=== PATIENT | female | born 1980 | race Native Hawaiian/Other Pacific Islander ===

== ENCOUNTER → 2019-04-03 | Outpatient (CLI) | payer BC ==
--- NOTE | 2019-04-03 13:11 | Diagnostic Imaging Report ---
INDICATION: Size and dates. TECHNIQUE: Multiple real-time grayscale images were obtained over the gravid uterus. COMPARISON: None FINDINGS: There is a single living intrauterine in variable presentation. There is normal volume of amniotic fluid. Placenta is posterior. The biometry correlates with a gestational age of 19 weeks 4 days. Anatomical survey is unremarkable although the three-vessel cord and cord insertion were suboptimally visualized due to movement and position. Heart rate is 150 bpm and regular. Maternal adnexa is unremarkable. Biometrical measurements are as follows: Biparietal 4.3 cm, age 19 weeks 1 days. Head circumference 16.87 cm, age 19 weeks 4 days. Abdominal circumference 14.32 cm, age 19 weeks 5 days. Femur length 3.10 cm, age 19 weeks 5 days. Sonographic estimate age: 19 weeks 4 days. Sonographic estimated date of delivery: 08/24/2019. Estimated Weight: 302 gm (+/- 44 gm). LMP percentile: 32%. heart rate: 150 beats per minute. number: 1 of 1. IMPRESSION: Single living intrauterine with sonographically estimated gestational age 19 weeks 4 days and estimated date of confinement 08/24/2019. Dictated by: Dictated on workstation # [id number]
== END ==
LOC: RAD 11:11
PROVIDERS: ATTEND Obstetrics & Gynecology
DX: O36.1920 Maternal care for other isoimmunization, second trimester, not applicable or unspecified (principal); Z3A.19 19 weeks gestation of pregnancy
CPT/HCPCS: 76805

== ENCOUNTER 2019-04-29 10:36 | Emergency (ER) | payer OTHER, BC ==
[~2019-04-29] VITALS: Ht 170 cm; Wt 94.0 kg
[2019-04-29] MEDS ORDERED: PREN-8 PO (11:22)
--- NOTE | 2019-04-29 11:46 | ED Lower Extremity ---
General Chief Complaint: Lower Extremity Stated Complaint: FALL - R FOOT PAIN / 6 MONTHS PREG Nursing Triage Note: c/o R ankle pain after slipping on rug. patient reports twisting to the ground on the ankle. denies other injury. reports is 6 months gestation Nursing Sepsis Screen: No Definite Risk Source: patient Exam Limitations: no limitations History of Present Illness Date Seen by Provider: Apr 29, 2019 Time Seen by Provider: 11:44 Initial Comments Twisted her foot while at work at [employer] where she is employed, right lateral foot pain. She is 6 months . Onset: just prior to arrival Pain/Injury Location: right foot Method of Injury: twisted Modifying Factors: Worse With Movement Allergies and Home Medications Allergies Coded Allergies: Penicillins (Verified Allergy, Mild, 04/29/19) Patient Home Medication List Home Medication List Reviewed: Yes Review of Systems Constitutional: see HPI EENTM: see HPI Respiratory: no symptoms reported Cardiovascular: no symptoms reported Genitourinary: no symptoms reported Musculoskeletal: see HPI Skin: no symptoms reported Psychiatric/Neurological: No Symptoms Reported Past Osjszox-Tjzgok-Nabnnw Hx Patient Social History Alcohol Use: Denies Use Recreational Drug Use: No Smoking Status: Never a Smoker Recent Foreign Travel: No Contact w/Someone Who Travel: No Recent Infectious Disease Expo: No Physical Abuse: No Sexual Abuse: No Mistreated: No Past Medical History Surgeries: No Respiratory: No Cardiac: No Neurological: No Genitourinary: No Gastrointestinal: No Musculoskeletal: No Endocrine: No HEENT: No Cancer: No Psychosocial: No Integumentary: No Blood Disorders: No Physical Exam Vital Signs Vital Signs - First Documented 04/29/19 11:18 Temp 37.0 Pulse 89 Resp 18 B/P (MAP) 137/79 (98) Pulse Ox 98 Capillary Refill : Less Than 3 Seconds Height, Weight, BMI Height: '" Weight: lbs. oz. kg; 32.00 BMI Method: General Appearance: WD/WN, no apparent distress HEENT: PERRL/EOMI, normal ENT inspection Neck: non-tender, full range of motion Respiratory: no respiratory distress, no accessory muscle use Hips: bilateral hip non-tender, bilateral hip normal inspection, bilateral hip normal range of motion Legs: bilateral leg non-tender, bilateral leg normal inspection, bilateral leg normal range of motion Knees: bilateral knee non-tender, bilateral knee normal inspection, bilateral knee normal range of motion Ankles: bilateral ankle non-tender, bilateral ankle normal inspection, bilateral ankle normal range of motion Feet: right foot other (swelling over the dorsal aspect of the foot at the proximal fourth and fifth metatarsals. Strong dorsalis pedis pulse normal sensation distally.) Neurologic/Psychiatric: alert, normal mood/affect, oriented x 3 Skin: normal color, warm/dry Progress/Results/Core Measures Results/Orders My Orders Orders - RUPERTO BOOTH APRN Ankle, Right, 3 Views (04/29/19 11:23) Foot, Right, 3 View (04/29/19 11:23) Vital Signs/I&O 04/29/19 11:18 Temp 37.0 Pulse 89 Resp 18 B/P (MAP) 137/79 (98) Pulse Ox 98 Blood Pressure Mean: 98 POS Departure Communication (Admissions) She is 6 months , heart rate obtained 166, placed in a posterior short-leg splint given crutches. Offered but Denies pain medication at this time. Impression Primary Impression: Sprain and strain of ankle Additional Impression: Cuboid fracture Disposition: 01 HOME, SELF-CARE Condition: Stable Departure-Patient Inst. Decision time for Depature: 11:44 Referrals: LEDA NGUYEN MD, DAVID G DPHERNÁN BROOKE DO (PCP) Primary Care Physician LISBETH TA MD, CORIN Q DPM ZAFUTA, MICHAEL P MD Patient Instructions: Ankle Sprain (DC) Add. Discharge Instructions: 1. Keep the splint on at all times. When you shower cover this with a trash bag to keep it dry. Keep it elevated as much as possible for the next 2-3 days. Return to ER for any worsening. Call orthopedic surgeon of your choosing on Wednesday for follow-up. No weightbearing in the meantime. All discharge instructions reviewed with patient and/or family. Voiced understanding. RUPERTO BOOTH APRN Apr 29, 2019 11:46 POS
--- NOTE | 2019-04-29 11:46 | Diagnostic Imaging Report ---
Indication: Right foot injury, pain. Comparison: None Findings: 3 views of the right foot demonstrate minimally displaced cuboid fracture lateral aspect. The remainder of the articular surfaces and bony structures are normal. There is no foreign body. Impression: Slightly displaced cuboid fracture. Dictated by: Dictated on workstation # [id number]
--- NOTE | 2019-04-29 11:46 | Diagnostic Imaging Report ---
CLINICAL HISTORY: Right ankle pain after slipping and falling. COMPARISON: None TECHNIQUE: Three views of the right ankle. FINDINGS: Acute fracture of the lateral aspect of the right cuboid is visualized. There is possible intra-articular extension into the right TMT joint. Soft tissue edema is noted along the lateral aspect of the right foot. No evidence of fracture or dislocation is seen in the right ankle. The ankle mortise is well aligned. IMPRESSION: 1. Acute fracture involving the right cuboid with possible intra-articular extension of the right TMT joint. Associated soft tissue edema is present. Dictated by: Dictated on workstation # [id number]
[2019-04-29 12:10] VITALS: BP 137/79
--- OUTSIDE RECORDS SUMMARY | 2019-05-24 21:19 | XMS REPORT | Continuity of Care Document ---
Author Organization Unknown Address Unknown Phone Unavailable Allergies Active Description Code Type Severity Reaction Onset Reported/Identified Relationship to Patient Clinical Status Yes Penicillins [id number] Drug Aller gy Mild N/A 04/29/2019 Medications There is no data. Problems Date Dx Coded Attending Type Code Diagnosis Diagnosed By 04/29/2019 HEIDI SALCIDO DO Ot O36.1920 MATERNAL CARE FOR OTH ISOIMMUN, SECOND T 04/29/2019 HEIDI SALCIDO DO Ot Z3A.1 9 19 WEEKS GESTATION OF 05/04/2019 RUPERTO BOOTH APRN Ot M79.671 PAIN IN RIGHT FOOT 05/04/2019 RUPERTO BOOTH APRN Ot O9A.212 INJ/POISN/OTH CONSEQ OF EXTRN CAUSES COM 05/04/2019 RUPERTO BOOTH APRN Ot S92.211A DISP FX OF CUBOID BONE OF RIGHT FOOT, IN 05/04/2019 RUPERTO BOOTH APRN Ot S93.401A SPRAIN OF UNSPECIFIED LIGAMENT OF RIGHT 05/04/2019 RUPERTO BOOTH APRN Ot X50.1XXA OVEREXERTION FROM PROLONGED STATIC OR AW 05/04/2019 RUPERTO BOOTH APRN Ot Y92.[address] 05/04/2019 RUPERTO BOOTH APRN Ot Z3A.00 WEEKS OF GESTATION OF NOT SPEC 05/04/2019 RUPERTO BOOTH APRN Ot Z88 .0 ALLERGY STATUS TO PENICILLIN 05/05/2019 HEIDI SALCIDO DO Ot O36.1920 MATERNAL CARE FOR OTH ISOIMMUN, SECOND T 05/05/2019 HEIDI SALCIDO DO Ot Z3A.2 3 23 WEEKS GESTATION OF 05/06/2019 RUPERTO BOOTH APRN Ot M79.671 PAIN IN RIGHT FOOT 05/06/2019 RUPERTO BOOTH APRN Ot O9A.212 INJ/POISN/OTH CONSEQ OF EXTRN CAUSES COM 05/06/2019 RUPERTO BOOTH APRN Ot S92.211A DISP FX OF CUBOID BONE OF RIGHT FOOT, IN 05/06/2019 RUPERTO BOOTH APRN Ot S93.401A SPRAIN OF UNSPECIFIED LIGAMENT OF RIGHT 05/06/2019 RUPERTO BOOTH APRN Ot X50.1XXA OVEREXERTION FROM PROLONGED STATIC OR AW 05/06/2019 RUPERTO BOOTH APRN Ot Y92.59 [facility] 05/06/2019 RUPERTO BOOTH APRN Ot Z3A.00 WEEKS OF GESTATION OF NOT SPEC 05/06/2019 RUPERTO BOTOH APRN Ot Z88 .0 ALLERGY STATUS TO PENICILLIN Procedures There is no data. Results There is no data. Encounters ACCT No. Visit Date/Time Discharge Status Pt. Type Provider Facility Loc./Unit Complaint [id number] 05/02/2019 10:32:00 23:59:59 CLS Outpatient HEIDI SALCIDO DO [facility] RAD MATERNAL ATYPICAL ANIBO DY AFFECTING [id number] 05/02/2019 09:11:00 23:59:59 CLS Preadmit HEIDI SALCIDO DO V [facility] RAD SURVEY [id number] 04/29/2019 10:37:00 12:10:00 DIS Outpatient RUPERTO BOOTH APRN [facility] ER FALL - R FOOT PAIN / 6 MONTHS PREG [id number] 04/03/2019 11:11:00 23:59:59 CLS Outpatient HEIDI SALCIDO DO [facility] RAD FETUS PRESENT DURING AL EGNANCY IN SECOND TRIMESTER
== END 2019-04-29 12:10 | disposition home or self-care (01) ==
LOC: EDUNIT# 10:36 → ER 10:37
DX: O9A.212 Injury, poisoning and certain other consequences of external causes complicating pregnancy, second trimester (principal); S93.401A Sprain of unspecified ligament of right ankle, initial encounter; S92.211A Displaced fracture of cuboid bone of right foot, initial encounter for closed fracture; Z3A.00 Weeks of gestation of pregnancy not specified; Z88.0 Allergy status to penicillin; X50.1XXA Overexertion from prolonged static or awkward postures, initial encounter; Y92.59 Other trade areas as the place of occurrence of the external cause
CPT/HCPCS: 73610; 73630

== ENCOUNTER → 2019-05-02 | Outpatient (CLI) | payer BC ==
[~2019-05-02] MED LIST: PREN-8 PO
--- NOTE | 2019-05-02 14:17 | Diagnostic Imaging Report ---
INDICATION: Follow-up anatomy. TECHNIQUE: Multiple real-time grayscale images were obtained over the gravid uterus. COMPARISON: 04/03/2019. FINDINGS: There is a single live fetus in a transverse presentation with head to maternal right. Heart rate was recorded at 155 BPM. Placenta is posterior. Amniotic fluid volume is normal. Four-chamber heart view was visualized on today's study. There is a three-vessel cord. Cord insertion is unremarkable. IMPRESSION: Unremarkable follow-up obstetrical ultrasound. Dictated by: Dictated on workstation # [id number]
== END ==
LOC: RAD 10:32
PROVIDERS: ATTEND Obstetrics & Gynecology
DX: O36.1920 Maternal care for other isoimmunization, second trimester, not applicable or unspecified (principal); Z3A.23 23 weeks gestation of pregnancy
CPT/HCPCS: 76816

== ENCOUNTER → 2019-06-12 | Outpatient (CLI) | payer BC, OTHER ==
--- NOTE | 2019-06-12 15:03 | Diagnostic Imaging Report ---
INDICATION: Follow-up growth. TECHNIQUE: Multiple real-time grayscale images were obtained over the gravid uterus. COMPARISON: 05/02/2019. FINDINGS: There is a single live fetus in a breech presentation. heart rate was recorded at 136 beats per minute. Placenta is posterior. Amniotic fluid volume is normal. Biometrical measurements are as follows: Biparietal 7.08 cm, age 28 weeks 4 days. Head circumference 27.94 cm, age 30 weeks 5 days. Abdominal circumference 24.78 cm, age 29 weeks 1 days. Femur length 5.25 cm, age 28 weeks 0 days. Sonographic estimate age: 29 weeks 1 days. Sonographic estimated date of delivery: 08/27/2019. Estimated Weight: 1281 gm (+/- 187 gm). LMP percentile: 10%. heart rate: 136 beats per minute. number: 1 of 1. IMPRESSION: Single live IUP of approximately 29 weeks gestational age demonstrating normal interval growth when compared with prior exam. No complicating features are detected. Dictated by: Dictated on workstation # [id number]
== END ==
LOC: RAD 11:15
PROVIDERS: ATTEND Obstetrics & Gynecology
DX: O36.1920 Maternal care for other isoimmunization, second trimester, not applicable or unspecified (principal); Z3A.19 19 weeks gestation of pregnancy
CPT/HCPCS: 76816

== ENCOUNTER → 2019-07-14 | Outpatient (CLI) | payer BC ==
--- NOTE | 2019-07-14 09:43 | Diagnostic Imaging Report ---
EXAMINATION: biophysical profile. INDICATION: Check well-being. COMPARISON: There are no prior biophysical profile examinations available for comparison. FINDINGS: The OB ultrasound exam of 06/12/2019 did note a single live fetus approximately 29 weeks gestation. On this study, the fetus is again evident. The fetus is cephalic in presentation. heart motion was noted and a rate of 133 BPM was recorded. The biophysical profile score is 8 out of 8 and within normal limits. Amniotic fluid index is 10.3. (normal 8 to 22 cm). IMPRESSION: 1. There is a single live fetus in cephalic presentation. 2. The biophysical profile score is 8 out of 8 and within normal limits. Dictated by: Dictated on workstation # [id number]
== END ==
LOC: RAD 07:28
PROVIDERS: ATTEND Obstetrics & Gynecology
DX: O09.523 Supervision of elderly multigravida, third trimester (principal); R76.0 Raised antibody titer; Z3A.31 31 weeks gestation of pregnancy
CPT/HCPCS: 76819

== ENCOUNTER 2019-08-11 17:40 | Inpatient (IN) | payer BC ==
[~2019-08-11] VITALS: Ht 170.2 cm; Wt 103.5 kg
--- NOTE | 2019-08-11 17:45 | NUR ---
MEGAN VENCES presented to unit via ambulation from ED, accompanied by s/o, with c/o LOWER BACK PAIN. MEGAN VENCES S weighed, gowned, voided, and to bed. EFHM and TOCO applied, VS taken. MEGAN VENCES oriented to bed controls, call light, TV, heat, and A/C controls.
[2019-08-11 18:03] VITALS: BP 142/83
[2019-08-11 18:25] LABS: BILIRUBIN,URINE NEGATIVE (NEGATIVE); CLARITY,URINE CLEAR; COLOR,URINE YELLOW; GLUCOSE, URINE (UA) NEGATIVE (NEGATIVE); KETONES,URINE NEGATIVE (NEGATIVE); LEUKOCYTE ESTERASE ,URINE NEGATIVE (NEGATIVE); NITRITE,URINE NEGATIVE (NEGATIVE); PROTEIN,URINE NEGATIVE (NEGATIVE)
--- NOTE | 2019-08-11 18:25 | NUR ---
dr martin notified of patient c/o and assessment. continuing to observe patient.
[2019-08-11 18:32] LABS: BACTERIA,URINE TRACE /HPF
--- NOTE | 2019-08-11 18:50 | NUR ---
dr martin called SBAR report given. orders received.
[2019-08-11] MEDS ORDERED: MINERAL OIL CONCENTRATE 99.9% 15 ML UDC TOP PRN (19:00)
[2019-08-11 20:04] VITALS: BP 125/78
[2019-08-11 20:36] LABS: BASOPHILS % (AUTO) 0 % (0-10); EOSINOPHILS # (AUTO) 0.1 10^3/uL (0.0-0.3); EOSINOPHILS % (AUTO) 1 % (0-10); HEMATOCRIT 35 % (35-52); HEMOGLOBIN 11.8 G/DL (11.5-16.0); LYMPHOCYTES # (AUTO) 2.7 X 10^3 (1.0-4.0); LYMPHOCYTES % (AUTO) 28 % (12-44); MEAN CORPUSCULAR HEMOGLOBIN 31 PG (25-34); MEAN CORPUSCULAR HGB CONC 34 G/DL (32-36); MEAN CORPUSCULAR VOLUME 90 FL (80-99); MEAN PLATELET VOLUME 10.1 FL (7.4-10.4); MONOCYTES # (AUTO) 0.7 X 10^3 (0.0-1.0); MONOCYTES % (AUTO) 8 % (0-12); NEUTROPHILS # (AUTO) 5.9 X 10^3 (1.8-7.8); NEUTROPHILS % (AUTO) 63 % (42-75); PLATELET COUNT 216 10^3/uL (130-400); RED CELL DISTRIBUTION WIDTH 13.6 % (10.0-14.5); WHITE BLOOD COUNT 9.4 10^3/uL (4.3-11.0)
[2019-08-11] MEDS ORDERED: ceFAZolin INJECTION 1,000 MG ONE (20:59)
[2019-08-11] MEDS ORDERED: MISOPROSTOL 100 MCG (CYTOTEC) TAB PO ONE ×2 (21:00→21:30)
[2019-08-11] MEDS ORDERED: WATER (STERILE) FOR INJECTION 10 ML ONE (21:05)
[2019-08-11] MEDS: ceFAZolin INJECTION 1,000 MG in WATER (STERILE) FOR INJECTION 10 ML IV SCH (21:12)
--- NOTE | 2019-08-11 21:15 | NUR ---
Dr. Holm at pt bedside with sono. Vertex presentation confirmed at this time.
[2019-08-11 21:18] VITALS: BP 121/69
[2019-08-11] MEDS ORDERED: LACTATED RINGERS 1,000 ML IV SCH (21:27)
[2019-08-11] MEDS ORDERED: TERBUTALINE INJ 1 MG/ML (BRETHINE) AMP SC PRN (21:30)
[2019-08-11 21:58] VITALS: BP 125/78
[2019-08-11] MEDS ORDERED: CATHETER FLUSH 10 ML SYR IV SCH (22:00)
[2019-08-11 22:20] VITALS: BP 124/67
[2019-08-11 23:05] VITALS: BP 131/72
[2019-08-12] VITALS (53 sets, daily range): BP systolic 82–146; BP diastolic 54–91
[2019-08-12] MEDS: D5 LR IV SOLUTION 1,000 ML IV SCH ×2 (00:51→08:46)
--- NOTE | 2019-08-12 01:41 | NUR ---
Nurse at pt bedside to adjust monitors. Pt. is sleeping soundly at this time.
[2019-08-12] MEDS: MISOPROSTOL 100 MCG (CYTOTEC) TAB PO SCH ×2 (02:11→06:08)
[2019-08-12] MEDS ORDERED: WATER (STERILE) FOR INJECTION 10 ML ONE (03:01)
[2019-08-12] MEDS ORDERED: ceFAZolin INJECTION 1,000 MG ONE (03:02)
[2019-08-12] MEDS: ceFAZolin INJECTION 1,000 MG in WATER (STERILE) FOR INJECTION 10 ML IV SCH (03:08)
--- NOTE | 2019-08-12 07:19 | NUR ---
Report given to Stephon Gomez RN.
[2019-08-12] MEDS ORDERED: ceFAZolin INJECTION 1,000 MG in WATER (STERILE) FOR INJECTION 10 ML IV SCH (09:00)
--- NOTE | 2019-08-12 09:32 | History & Physical-OB ---
OB - Chief Complaint & HPI Date/Time Date of Admission: Date of Admission: Aug 11, 2019 at 18:55 Date seen by a Provider: Aug 12, 2019 Time Seen by a Provider: 19:00 Chief Complaint/History OB-Reason for Admission/Chief: Onset of Labor Hx : 3 Hx Para: 2 Expected Date of Delivery: Aug 22, 2019 Gestational Age in Weeks: 37 Gestational Age in Days: 6 Other reason for admission: Presented to clinic with low back pain and contractions. Was 1 cm dilated but david regularly. Originally complained of decreased movement. Did see increase in movement at end of NST. Sent home with labor instructions. Arrived this evening with increase in contractions and lower pelvic pressure. Decreased movement. David less frequently, but cervical exam has changed. Admitted for labor and decreased movement. GBS + with true penicillin allergy. Ancef started. Will monitor. Admission Nurse Assessment Rev: Yes History of Labs elevated titers for anti-c anti-E but these have never been > 1:1. Had eval with MFM due to AMA and antibodies. Had negative NIPT testing and normal Nuchal translucency. Was to return if titers were ever > 1:16 and they never did. Has had normal US and normal testing. B+, antibody + (testing here was neg) Rub I VDRL NR HIV - HbSAg - Hep C - GBS + Allergies and Home Medications Allergies Coded Allergies: Penicillins (Verified Allergy, Mild, 04/29/19) Patient Home Medication List Home Medication List Reviewed: Yes OB - History Hx of Present Care: Yes Ultrasounds: Normal mid trimester US, Other (normal BPP, growth, NST) Obstetrical Complications: None Medical Complications: Other (abnormal antibody, AMA) Information Induced Hypertension: No Maternal Gestational Diabetes: No Hemorrhage: No Obstetrical History Hx : 3 Hx Para: 2 Hx Total # of Abortions (Spona: 0 Hx Multiple Gestation: No Hx Ectopic : No Hx Stillbirth: No Hx Complication: No Hx Induced Hypertens: No Hx Maternal Gestational Diabet: No Hx Hemorrhage: No Delivery History Hx Dystocia: No Hx Forceps Assisted Delivery: No Hx Vacuum Extraction Assisted: No Hx Placenta Abnormality: No Patient Past Medical History history of CKC of cervix NC cervical dysplasia Social History/Family History HIV/AIDS: No Recent Infectious Disease Expo: No Sexually Transmitted Disease: No Alcohol Use: Denies Use Recreational Drug Use: No Smoking Cessation: Current some day smoker 2nd Hand Smoke Exposure: No Immunizations Hepatitis A: No Tetanus Booster (TDap): Less than 5yrs (06/01/19) Date of Influenza Vaccine: Apr 12, 2019 Rubella: immune RPR/VDRL: Negative GBS Status: Positive HBsAG: Negative OB - Admission Exam Physical Exam Vitals: Vital Signs 08/11/19 08/12/19 21:58 06:15 Temp 37.2 Pulse 77 Resp 18 B/P (MAP) 144/69 (94) Pulse Ox 97 O2 Delivery Room Air HEENT: NCAT Heart: Rhythm Normal Lungs: Clear Abdomen: Gravid Extremities: Normal Reflexes: Normal Cervical Dilatation: 3cm Effacement: 50% Station: -3 Membranes: Intact Amniotic Fluid: Clear Heart Rate: 130's Accelerations: Accelerations Present Decelerations: No Decelerations Short Term Variability: Present Contractions on Admission: < 5 Minutes Apart Labs Laboratory Tests Test 08/11/19 17:50 08/11/19 20:20 Range/Units Urine Color YELLOW Urine Clarity CLEAR Urine pH 6.0 5-9 Urine Specific [place] <=1.005 1.016-1.022 Urine Protein NEGATIVE NEGATIVE Urine Glucose (UA) NEGATIVE NEGATIVE Urine Ketones NEGATIVE NEGATIVE Urine Nitrite NEGATIVE NEGATIVE Urine Bilirubin NEGATIVE NEGATIVE Urine Urobilinogen 0.2 < = 1.0 MG/DL Urine Leukocyte Esterase NEGATIVE NEGATIVE Urine RBC (Auto) NEGATIVE NEGATIVE Urine RBC NONE /HPF Urine WBC NONE /HPF Urine Crystals NONE /LPF Urine Bacteria TRACE /HPF Urine Casts NONE /LPF Urine Mucus NEGATIVE /LPF Urine Culture Indicated CULTURE PENDING White Blood Count 9.4 4.3-11.0 10^3/uL Red Blood Count 3.85 L 4.35-5.85 10^6/uL Hemoglobin 11.8 11.5-16.0 G/DL Hematocrit 35 35-52 % Mean Corpuscular Volume 90 80-99 FL Mean Corpuscular Hemoglobin 31 25-34 PG Mean Corpuscular Hemoglobin Concent 34 32-36 G/DL Red Cell Distribution Width 13.6 10.0-14.5 % Platelet Count 216 130-400 10^3/uL Mean Platelet Volume 10.1 7.4-10.4 FL Neutrophils (%) (Auto) 63 42-75 % Lymphocytes (%) (Auto) 28 12-44 % Monocytes (%) (Auto) 8 0-12 % Eosinophils (%) (Auto) 1 0-10 % Basophils (%) (Auto) 0 0-10 % Neutrophils # (Auto) 5.9 1.8-7.8 X 10^3 Lymphocytes # (Auto) 2.7 1.0-4.0 X 10^3 Monocytes # (Auto) 0.7 0.0-1.0 X 10^3 Eosinophils # (Auto) 0.1 0.0-0.3 10^3/uL Basophils # (Auto) 0.0 0.0-0.1 10^3/uL OB - Assessment/Plan/Diagnosis Assessment Assessment: active labor, other (Advanced maternal age, abnormal antibodies, decreased movementm, GBS +) Admission Dx Labor, see above Admission Status: Inpatient Order (span 2 midnights) Reason for Inpatient Admission: labor Plan Plan: Expectant Management, Other (GBS prophylaxis with Ancef due to pcn allergy. will give misoprostol due to thickened cervix, rather than pitocin. AROM once has had sufficient dosing of the ancef. Anticipate . Peds - ) HEIDI SALCIDO DO Aug 12, 2019 09:32
[2019-08-12] MEDS ORDERED: OXYTOCIN PRE-MIX DRIP 500 ML IV ONE (10:03)
[2019-08-12] MEDS ORDERED: OXYTOCIN PRE-MIX DRIP 500 ML IV SCH (10:06)
--- NOTE | 2019-08-12 10:33 | NUR ---
Divina Schumacher CRNA called and notified of epidural request
[2019-08-12] MEDS ORDERED: SUFENTA 0.6MCG/ML BUPIVA 0.125 100 ML ONE (10:34)
[2019-08-12] MEDS ORDERED: fentaNYL INJECTION 100 MCG/2 ML AMP ONE (10:49)
[2019-08-12] MEDS ORDERED: BUPIVACAINE 0.25% 30 ML (SENSORCAINE) VIAL ONE (10:49)
[2019-08-12] MEDS ORDERED: LIDOCAINE PF 2% 5 ML (XYLOCAINE) VIAL ONE (10:49)
--- NOTE | 2019-08-12 10:55 | NUR ---
Divina Schumacher CRNA and MARIE Richard here for epidural placement. Procedure explained, consent reviewed and signed by anesthesia. Questions answered to patient's satisfaction. Time out taken to verify correct patient/procedure. Patient up to side of bed, assisted into sitting position. Betadine prep done x3 and sterile drape applied. Local done, see anesthesia record. Test dose given, see anesthesia record for drug and dosage. Epidural catheter secured in place. Epidural placement complete. Assisted back into bed, monitors adjusted. Epidural dosed, see anesthesia record. Epidural of Sufenta/Bupvicaine @12cc/hr stated per pump. Patient tolerated procedure well.
[2019-08-12] MEDS ORDERED: LACTATED RINGERS 1,000 ML IV SCH (11:31)
[2019-08-12] MEDS ORDERED: NALOXONE 0.4 MG/ML 1 ML (NARCAN) VIAL IV PRN (11:45)
[2019-08-12] MEDS ORDERED: diphenhydrAMINE 50 MG/ML INJ (BENADRYL) IV PRN (11:45)
[2019-08-12] MEDS ORDERED: EPIDURAL (SUFENTA 0.6MCG/ML BUPIVA 0.125%) 100 ML BAG EPI PRN (11:45)
[2019-08-12] MEDS ORDERED: ONDANSETRON 4 MG/2 ML (SDV) Z0FRAN IV PRN (11:45)
[2019-08-12] MEDS ORDERED: LIDOCAINE/EPI 2% 1:200,00 (XYLOCAINE) 10 ML VIAL ONE (16:08)
--- NOTE | 2019-08-12 17:12 | OB Labor & Delivery Record ---
Vag Delivery Note Vag Delivery Note Date of Delivery: 08/12/19 Preoperative Diagnosis: Belinda Wright is a 38 /Para 3 / 2, Gestational Age 38 4/7 weeks, labor, GBS + Postoperative Diagnosis: Same Surgeon: HEIDI SALCIDO Plant Protection Officer: Kyle Cortez, MS III Anesthesia: epidural Delivery Type: vaginal Findings: Viable male infant, apgars 9/9, weight 7#8 ounces Lacerations: 1st degree laceration, supraclitoral Intact placenta with 3 vessel cord. No nuchal cord, body cord or shoulder dystocia Estimated Blood Loss: 1000 ml Complications: None Condition: Stable Description of Procedure: The patient is a 38 year old female who presented in latent labor, GBS +. She was admitted and informed consent was obtained. Her labor course was remarkable for GBS prophylaxis. misoprostol, AROM, oxytocin augmentation. She progressed to complete dilatation and began to push. She was then set up for delivery. The 's head was delivered atraumatically in the IAN position. The shoulders and remainder of the 's body were then delivered without difficulty. Upon delivery, the head was held below the level of the perineum and the mouth and nares were bulb suctioned. The cord was doubly clamped and cut and the infant was handed off to the pediatric staff. An intact placenta with 3-vessel cord delivered via Sharmila and there was found to be minimal bleeding.~ Vigorous fundal massage was performed and the fundus was found to be firm. IV oxytocin was given. Examination of the vagina and perineum revealed a supraclitoral and 1st degree laceration repaired in the usual fashion with 3-0 vicryl suture. Following the repair, sponge, instrument and needle counts were correct. Mom and baby were both in stable condition in the labor suite. Vitals - Labs Vital Signs - I&O Vital Signs Date Time Temp Pulse Resp B/P (MAP) Pulse Ox O2 Delivery O2 Flow Rate FiO2 08/12/19 15:45 36.6 82 18 129/79 (96) Room Air 08/12/19 15:30 96 18 123/67 (85) Room Air 08/12/19 15:15 78 18 104/59 (74) Room Air 08/12/19 15:00 82 18 119/69 (86) Room Air 08/12/19 14:45 82 18 119/60 (79) Room Air 08/12/19 14:30 74 18 123/63 (83) Room Air 08/12/19 14:15 36.7 86 18 115/65 (82) Room Air 08/12/19 14:00 74 18 103/59 (74) Room Air 08/12/19 13:45 76 18 120/56 (77) Room Air 08/12/19 13:30 78 18 129/78 (95) Room Air 08/12/19 13:15 86 18 145/91 (109) Room Air 08/12/19 13:00 18 128/80 (96) Room Air 08/12/19 12:45 36.7 75 18 132/70 (90) 98 Room Air 08/12/19 12:30 80 18 126/70 (88) 99 Room Air 08/12/19 12:15 75 18 119/69 (86) 98 Room Air 08/12/19 12:10 90 18 116/70 (85) 96 Room Air 08/12/19 12:05 86 18 120/63 (82) 98 Room Air 08/12/19 12:00 106 18 123/66 (85) 97 Room Air 08/12/19 11:54 84 18 116/64 (81) 97 Room Air 08/12/19 11:51 96 18 119/68 (85) 99 Room Air 08/12/19 11:48 98 18 127/71 (89) 99 Room Air 08/12/19 11:45 99 18 124/66 (85) 97 Room Air 08/12/19 11:41 108 18 125/65 (85) Room Air 08/12/19 11:38 95 18 128/75 (92) 99 Room Air 08/12/19 11:35 92 18 117/64 (81) Room Air 08/12/19 11:32 100 18 112/60 (77) 98 Room Air 08/12/19 11:29 98 18 120/69 (86) 98 Room Air 08/12/19 11:26 94 18 116/68 (84) 98 Room Air 08/12/19 11:23 84 18 124/68 (86) 98 Room Air 08/12/19 11:20 90 18 132/75 (94) 98 Room Air 08/12/19 11:10 94 18 131/60 (83) 96 Room Air 08/12/19 10:55 36.8 88 18 146/74 (98) Room Air 08/12/19 10:40 90 18 141/74 (96) Room Air 08/12/19 09:50 36.9 86 18 131/77 (95) Room Air 08/12/19 07:45 36.7 90 18 123/75 (91) Room Air 08/12/19 06:15 37.2 77 18 144/69 (94) Room Air 08/12/19 04:43 37.0 86 18 122/73 (89) Room Air 08/12/19 00:57 37.0 85 18 122/60 (80) Room Air 08/11/19 23:05 85 18 131/72 (91) Room Air 08/11/19 22:20 86 18 124/67 (86) Room Air 08/11/19 21:58 37.4 95 18 97 Room Air 08/11/19 21:18 88 18 121/69 (86) Room Air 08/11/19 20:04 37.4 95 18 125/78 (94) 97 Room Air 08/11/19 18:03 37.0 110 20 98 Room Air Labs Laboratory Tests 08/11/19 17:50: Urine Color YELLOW, Urine Clarity CLEAR, Urine pH 6.0, Urine Specific [place] <=1.005, Urine Protein NEGATIVE, Urine Glucose (UA) NEGATIVE, Urine Ketones NEGATIVE, Urine Nitrite NEGATIVE, Urine Bilirubin NEGATIVE, Urine Urobilinogen 0.2, Urine Leukocyte Esterase NEGATIVE, Urine RBC (Auto) NEGATIVE, Urine RBC NONE, Urine WBC NONE, Urine Crystals NONE, Urine Bacteria TRACE, Urine Casts NONE, Urine Mucus NEGATIVE, Urine Culture Indicated CULTURE PENDING 08/11/19 20:20: White Blood Count 9.4, Red Blood Count 3.85L, Hemoglobin 11.8, Hematocrit 35, Mean Corpuscular Volume 90, Mean Corpuscular Hemoglobin 31, Mean Corpuscular Hemoglobin Concent 34, Red Cell Distribution Width 13.6, Platelet Count 216, Mean Platelet Volume 10.1, Neutrophils (%) (Auto) 63, Lymphocytes (%) (Auto) 28, Monocytes (%) (Auto) 8, Eosinophils (%) (Auto) 1, Basophils (%) (Auto) 0, Neutrophils # (Auto) 5.9, Lymphocytes # (Auto) 2.7, Monocytes # (Auto) 0.7, Eosinophils # (Auto) 0.1, Basophils # (Auto) 0.0 HEIDI SALCIDO DO Aug 12, 2019 17:11
[2019-08-12] MEDS ORDERED: MEASLES,MUMPS,RUBELLA 1 EA INJ SQ ONE (17:15)
[2019-08-12] MEDS ORDERED: DIBUCAINE (NUPERCAINAL) 1% OINT 30 GM TOP PRN (17:15)
[2019-08-12] MEDS ORDERED: BENZOCAINE/MENTHOL (DERMOPLAST) 60 ML CAN TP PRN (17:15)
[2019-08-12] MEDS ORDERED: WITCH HAZEL(TUCKS) 40 EA JAR TOP PRN (17:15)
[2019-08-12] MEDS ORDERED: TETANUS,DIPTH,PERTUSS P/F (BOOSTRIX) 0.5 ML VIAL IM ONE (17:15)
[2019-08-12] MEDS: OXYTOCIN PRE-MIX DRIP 500 ML IV SCH ×2 (17:20→18:06)
[2019-08-12] MEDS: IBUPROFEN 600 MG (MOTRIN) TAB PO SCH (19:28)
[2019-08-12] MEDS: DOCUSATE SODIUM 100 MG (COLACE) CAP PO SCH (21:58)
[2019-08-12] MEDS: ACETAMINOPHEN 500 MG TAB (TYLENOL) PO SCH (21:58)
[2019-08-12] MEDS ORDERED: CATHETER FLUSH 10 ML SYR IV SCH (22:00)
[2019-08-13] MEDS: IBUPROFEN 600 MG (MOTRIN) TAB PO SCH ×3 (02:12→16:56)
[2019-08-13 04:33] VITALS: BP 115/73
[2019-08-13 05:36] LABS: BASOPHILS % (AUTO) 0 % (0-10); EOSINOPHILS # (AUTO) 0.2 10^3/uL (0.0-0.3); EOSINOPHILS % (AUTO) 2 % (0-10); HEMATOCRIT 28 % (35-52); HEMOGLOBIN 9.4 G/DL (11.5-16.0); LYMPHOCYTES # (AUTO) 2.2 X 10^3 (1.0-4.0); LYMPHOCYTES % (AUTO) 25 % (12-44); MEAN CORPUSCULAR HEMOGLOBIN 31 PG (25-34); MEAN CORPUSCULAR HGB CONC 34 G/DL (32-36); MEAN CORPUSCULAR VOLUME 92 FL (80-99); MEAN PLATELET VOLUME 9.1 FL (7.4-10.4); MONOCYTES # (AUTO) 0.7 X 10^3 (0.0-1.0); MONOCYTES % (AUTO) 8 % (0-12); NEUTROPHILS # (AUTO) 5.7 X 10^3 (1.8-7.8); NEUTROPHILS % (AUTO) 65 % (42-75); PLATELET COUNT 171 10^3/uL (130-400); RED CELL DISTRIBUTION WIDTH 13.8 % (10.0-14.5); WHITE BLOOD COUNT 8.7 10^3/uL (4.3-11.0)
--- NOTE | 2019-08-13 08:20 | NUR ---
To room for director medical affairs and assessment. Pt awakens briefly upon RN entering room, but is sleeping with in open crib next to bed. Will let pt rest and will return for assessment. No s/s of distress noted.
--- NOTE | 2019-08-13 09:05 | Postpartum Progress Note ---
Note Note Day # 1 s/p , PPH Subjective: Patient is without complaints. Ambulating, voiding. Tolerating a regular diet without nausea or vomiting. Normal lochia. Pain is well controlled with oral pain medications. breast feeding. Objective: Laboratory Tests Test 08/11/19 17:50 08/11/19 20:20 08/13/19 05:11 Range/Units Urine Color YELLOW Urine Clarity CLEAR Urine pH 6.0 5-9 Urine Specific [place] <=1.005 1.016-1.022 Urine Protein NEGATIVE NEGATIVE Urine Glucose (UA) NEGATIVE NEGATIVE Urine Ketones NEGATIVE NEGATIVE Urine Nitrite NEGATIVE NEGATIVE Urine Bilirubin NEGATIVE NEGATIVE Urine Urobilinogen 0.2 < = 1.0 MG/DL Urine Leukocyte Esterase NEGATIVE NEGATIVE Urine RBC (Auto) NEGATIVE NEGATIVE Urine RBC NONE /HPF Urine WBC NONE /HPF Urine Crystals NONE /LPF Urine Bacteria TRACE /HPF Urine Casts NONE /LPF Urine Mucus NEGATIVE /LPF Urine Culture Indicated CULTURE PENDING White Blood Count 9.4 8.7 4.3-11.0 10^3/uL Red Blood Count 3.85 L 3.01 L 4.35-5.85 10^6/uL Hemoglobin 11.8 9.4 #L 11.5-16.0 G/DL Hematocrit 35 28 L 35-52 % Mean Corpuscular Volume 90 92 80-99 FL Mean Corpuscular Hemoglobin 31 31 25-34 PG Mean Corpuscular Hemoglobin Concent 34 34 32-36 G/DL Red Cell Distribution Width 13.6 13.8 10.0-14.5 % Platelet Count 216 171 130-400 10^3/uL Mean Platelet Volume 10.1 9.1 7.4-10.4 FL Neutrophils (%) (Auto) 63 65 42-75 % Lymphocytes (%) (Auto) 28 25 12-44 % Monocytes (%) (Auto) 8 8 0-12 % Eosinophils (%) (Auto) 1 2 0-10 % Basophils (%) (Auto) 0 0 0-10 % Neutrophils # (Auto) 5.9 5.7 1.8-7.8 X 10^3 Lymphocytes # (Auto) 2.7 2.2 1.0-4.0 X 10^3 Monocytes # (Auto) 0.7 0.7 0.0-1.0 X 10^3 Eosinophils # (Auto) 0.1 0.2 0.0-0.3 10^3/uL Basophils # (Auto) 0.0 0.0 0.0-0.1 10^3/uL Physical Exam: General - Alert and oriented, no apparent distress Abdomen - Soft, appropriately tender to palpation, non-distended, fundus firm at umbilicus Extremities - no edema, negative Jf's bilaterally Assessment: 1. post- day # 1, status post sponteous vaginal delivery. Recovering well, hemodynamically stable Plan: Routine care. Encourage breast feeding. Encourage ambulation. Ferrous sulfate supplementation. Plan for discharge tomorrow Vitals - Labs Vital Signs - I&O Vital Signs Date Time Temp Pulse Resp B/P (MAP) Pulse Ox O2 Delivery O2 Flow Rate FiO2 08/13/19 04:33 36.6 87 18 115/73 (87) 99 Room Air 08/12/19 23:50 36.5 87 18 82/54 (63) 97 Room Air 08/12/19 19:30 99 18 121/61 (81) Room Air 08/12/19 19:21 36.7 113 18 119/62 (81) Room Air 08/12/19 19:15 111 18 116/59 (78) Room Air 08/12/19 19:02 100 18 122/60 (80) Room Air 08/12/19 18:30 103 18 138/88 (105) Room Air 08/12/19 18:15 103 18 138/75 (96) Room Air 08/12/19 18:02 105 145/76 (99) Room Air 08/12/19 17:45 100 121/77 (92) Room Air 08/12/19 17:35 36.9 101 18 125/82 (96) Room Air 08/12/19 17:00 84 18 125/56 (79) Room Air 08/12/19 16:45 84 18 117/60 (79) Room Air 08/12/19 16:30 90 18 121/75 (90) Room Air 08/12/19 16:15 94 18 122/79 (93) Room Air 08/12/19 16:00 79 18 136/70 (92) Room Air 08/12/19 15:45 36.6 82 18 129/79 (96) Room Air 08/12/19 15:30 96 18 123/67 (85) Room Air 08/12/19 15:15 78 18 104/59 (74) Room Air 08/12/19 15:00 82 18 119/69 (86) Room Air 08/12/19 14:45 82 18 119/60 (79) Room Air 08/12/19 14:30 74 18 123/63 (83) Room Air 08/12/19 14:15 36.7 86 18 115/65 (82) Room Air 08/12/19 14:00 74 18 103/59 (74) Room Air 08/12/19 13:45 76 18 120/56 (77) Room Air 08/12/19 13:30 78 18 129/78 (95) Room Air 08/12/19 13:15 86 18 145/91 (109) Room Air 08/12/19 13:00 18 128/80 (96) Room Air 08/12/19 12:45 36.7 75 18 132/70 (90) 98 Room Air 08/12/19 12:30 80 18 126/70 (88) 99 Room Air 08/12/19 12:15 75 18 119/69 (86) 98 Room Air 08/12/19 12:10 90 18 116/70 (85) 96 Room Air 08/12/19 12:05 86 18 120/63 (82) 98 Room Air 08/12/19 12:00 106 18 123/66 (85) 97 Room Air 08/12/19 11:54 84 18 116/64 (81) 97 Room Air 08/12/19 11:51 96 18 119/68 (85) 99 Room Air 08/12/19 11:48 98 18 127/71 (89) 99 Room Air 08/12/19 11:45 99 18 124/66 (85) 97 Room Air 08/12/19 11:41 108 18 125/65 (85) Room Air 08/12/19 11:38 95 18 128/75 (92) 99 Room Air 08/12/19 11:35 92 18 117/64 (81) Room Air 08/12/19 11:32 100 18 112/60 (77) 98 Room Air 08/12/19 11:29 98 18 120/69 (86) 98 Room Air 08/12/19 11:26 94 18 116/68 (84) 98 Room Air 08/12/19 11:23 84 18 124/68 (86) 98 Room Air 08/12/19 11:20 90 18 132/75 (94) 98 Room Air 08/12/19 11:10 94 18 131/60 (83) 96 Room Air 08/12/19 10:55 36.8 88 18 146/74 (98) Room Air 08/12/19 10:40 90 18 141/74 (96) Room Air 08/12/19 09:50 36.9 86 18 131/77 (95) Room Air I & O 08/13/19 07:00 Intake Total 2009 ml Balance 2009 ml Labs Laboratory Tests 08/13/19 05:11: White Blood Count 8.7, Red Blood Count 3.01L, Hemoglobin 9.4#L, Hematocrit 28L, Mean Corpuscular Volume 92, Mean Corpuscular Hemoglobin 31, Mean Corpuscular Hemoglobin Concent 34, Red Cell Distribution Width 13.8, Platelet Count 171, Mean Platelet Volume 9.1, Neutrophils (%) (Auto) 65, Lymphocytes (%) (Auto) 25, Monocytes (%) (Auto) 8, Eosinophils (%) (Auto) 2, Basophils (%) (Auto) 0, Ne utrophils # (Auto) 5.7, Lymphocytes # (Auto) 2.2, Monocytes # (Auto) 0.7, Eosinophils # (Auto) 0.2, Basophils # (Auto) 0.0 HEIDI SALCIDO DO Aug 13, 2019 09:05
--- NOTE | 2019-08-13 09:20 | NUR ---
RN to room to answer call light. Pt showering at this time. Towels and shower supplies provided.
[2019-08-13] MEDS: FERROUS SULF 325 MG (IRON) TAB PO SCH (10:45)
[2019-08-13] MEDS: PRENATAL VITAMIN 1 EA TAB PO SCH (10:46)
[2019-08-13] MEDS: DOCUSATE SODIUM 100 MG (COLACE) CAP PO SCH ×2 (10:46→21:06)
[2019-08-13 10:48] VITALS: BP 121/74
[2019-08-13] MEDS: ACETAMINOPHEN 500 MG TAB (TYLENOL) PO SCH ×2 (13:05→21:06)
--- NOTE | 2019-08-13 13:30 | Anesthesia-Regional Post-Op ---
Regional Patient Condition Mental Status: Alert, Oriented x3 Circulation: Same as Pre-Op Headache: Absent Sensation: Full Recovery Motor Block: Absent Post Op Complications Complications None Follow Up Care/Instructions Patient Instructions None needed. Anesthesia/Patient Condition Patient is doing well, no complaints, stable vital signs, no apparent adverse anesthesia problems. No complications reported per nursing. ELHAM BEE CRNA Aug 13, 2019 13:30
--- OUTSIDE RECORDS SUMMARY | 2019-08-13 15:43 | XMS REPORT | Continuity of Care Document ---
Author Organization Unknown Address Unknown Phone Unavailable Allergies Active Description Code Type Severity Reaction Onset Reported/Identified Relationship to Patient Clinical Status Yes Penicillins [id number] Drug Aller gy Mild N/A 04/29/2019 Medications [...] BONE OF RIGHT FOOT, IN 05/06/2019 RUPERTO BOOHT APRN Ot S93.401A SPRAIN OF UNSPECIFIED LIGAMENT OF RIGHT 05/06/2019 RUPERTO BOOTH APRN Ot X50.1XXA OVEREXERTION FROM PROLONGED STATIC OR AW 05/06/2019 RUPERTO BOOTH APRN Ot Y92.59 [facility] 05/06/2019 RUPERTO BOOTH APRN Ot Z3A.00 WEEKS OF GESTATION OF NOT SPEC 05/06/2019 RUPERTO BOOTH APRN Ot Z88 .0 ALLERGY STATUS TO PENICILLIN 06/30/2019 SALCIDO DO HEIDI C Ot O36.1920 MATERNAL CARE FOR [facility] ISOIMMUN, SECOND T 06/30/2019 LOLY DO HEIDI C Ot Z3A.1 9 19 WEEKS GESTATION OF 07/27/2019 SALCIDO DO HEIDI C Ot O09.5 23 [facility]PERVISION OF [facility], [facility] 07/27/2019 SALCIDO DO HEIDI C Ot R76.0 RAISED ANTIBODY TITER 07/27/2019 SALCIDO DO HEIDI C Ot Z3A.3 1 31 WEEKS GESTATION OF 08/10/2019 SALCIDO DO HEIDI C Ot O09.5 23 [facility]PERVISION OF [facility], [facility] 08/10/2019 SALCIDO DO HEIDI C Ot R76.0 RAISED ANTIBODY TITER 08/10/2019 SALCIDO DO HEIDI C Ot Z3A.3 1 31 WEEKS GESTATION OF Procedures There is no data. Results Test Result Range Complete urinalysis with reflex to cultu re - 08/11/19 17:50 Urine color determination YELLOW NRG Urine clarity determination CLEAR NR G Urine pH measurement by test strip 6.0 5-9 Specific gravity of urine by test strip <= 1.016-1.022 Urine protein assay by test strip, semi-quantitative NEGATIVE NEGATIVE Urine glucose detection by automated test strip NE GATIVE NEGATIVE Erythrocytes detection in urine sediment by light micr oscopy NEGATIVE NEGATIVE Urine ketones detection by automated test strip NE GATIVE NEGATIVE Urine nitrite detection by test strip NEGATIVE NEGATIVE Urine total bilirubin detection by test strip NEGA TIVE NEGATIVE Urine urobilinogen measurement by automated test strip (mass/volume) 0.2 mg/dL < = 1.0 Urine leukocyte esterase detection by dipstick NEG ATIVE NEGATIVE Automated urine sediment erythrocyte cou nt by microscopy (number/high power field) NONE NRG Automated urine sediment leukocyte count by microscopy (number/high power field) NONE NRG Bacteria detection in urine sediment by light microsco py TRACE NRG Crystals detection in urine sediment by light microsco py NONE NRG Casts detection in urine sediment by light microscopy NONE NRG Mucus detection in urine sediment by light microscopy NEGATIVE NRG Complete urinalysis with reflex to culture CULTURE PENDING NRG Bacterial urine culture - 08/11/19 17:50 Bacterial urine culture [id number] NRG COLONY COUNT <10,000 NRG FTX;REPORTABLE NO SUSCEPTIBILITIES SET UP NRG Complete blood count (CBC) with automate d white blood cell (WBC) differential - 08/11/19 20:20 Blood leukocytes automated count (number/volume) 9.4 10*3/uL 4.3-11.0 Blood erythrocytes automated count (number/volume) 3.85 10*6/uL 4.35-5.85 Venous blood hemoglobin measurement (mass/volume) 11.8 g/dL 11.5-16.0 Blood hematocrit (volume fraction) 35 % 35-52 Automated erythrocyte mean corpuscular volume 90 [ foz_us] 80-99 Automated erythrocyte mean corpuscular h emoglobin (mass per erythrocyte) 31 pg 25-34 Automated erythrocyte mean corpuscular h emoglobin concentration measurement (mass/volume) 34 g/dL 32-36 Automated erythrocyte distribution width ratio 13. 6 % 10.0- 14.5 Automated blood platelet count (count/volume) 216 10*3/uL 130-400 Automated blood platelet mean volume measurement 10.1 [foz_us] 7.4-10.4 Automated blood neutrophils/100 leukocytes 63 % 42-75 Automated blood lymphocytes/100 leukocytes 28 % 12-44 Blood monocytes/100 leukocytes 8 % 0-12 Automated blood eosinophils/100 leukocytes 1 % 0-10 Automated blood basophils/100 leukocytes 0 % 0-10 Blood neutrophils automated count (number/volume) 5.9 10*3 1.8-7.8 Blood lymphocytes automated count (number/volume) 2.7 10*3 1.0-4.0 Blood monocytes automated count (number/volume) 0. 7 10*3 0.0-1.0 Automated eosinophil count 0.1 10*3/uL 0 .0-0.3 Automated blood basophil count (count/volume) 0.0 10*3/uL 0.0-0.1 Blood type T Indirect antibody screen pa darya - 08/11/19 20:20 WRISTBAND NUMBER [id number] NRG ABO+Rh group BP NRG Blood group antibody screen NEGATIVE NR G Complete blood count (CBC) with automate d white blood cell (WBC) differential - 08/13/19 05:11 Blood leukocytes automated count (number/volume) 8.7 10*3/uL 4.3-11.0 Blood erythrocytes automated count (number/volume) 3.01 10*6/uL 4.35-5.85 Venous blood hemoglobin measurement (mass/volume) 9.4 g/dL 11.5-16.0 Blood hematocrit (volume fraction) 28 % 35-52 Automated erythrocyte mean corpuscular volume 92 [ foz_us] 80-99 Automated erythrocyte mean corpuscular h emoglobin (mass per erythrocyte) 31 pg 25-34 Automated erythrocyte mean corpuscular h emoglobin concentration measurement (mass/volume) 34 g/dL 32-36 Automated erythrocyte distribution width ratio 13. 8 % 10.0- 14.5 Automated blood platelet count (count/volume) 171 10*3/uL 130-400 Automated blood platelet mean volume measurement 9.1 [foz_us] 7.4-10.4 Automated blood neutrophils/100 leukocytes 65 % 42-75 Automated blood lymphocytes/100 leukocytes 25 % 12-44 Blood monocytes/100 leukocytes 8 % 0-12 Automated blood eosinophils/100 leukocytes 2 % 0-10 Automated blood basophils/100 leukocytes 0 % 0-10 Blood neutrophils automated count (number/volume) 5.7 10*3 1.8-7.8 Blood lymphocytes automated count (number/volume) 2.2 10*3 1.0-4.0 Blood monocytes automated count (number/volume) 0. 7 10*3 0.0-1.0 Automated eosinophil count 0.2 10*3/uL 0 .0-0.3 Automated blood basophil count (count/volume) 0.0 10*3/uL 0.0-0.1 Encounters ACCT No. Visit Date/Time Discharge Status Pt. Type Provider Facility Loc./Unit Complaint [id number] 07/14/2019 07:28:00 23:59:59 CLS Outpatient HEIDI SALCIDO DO [facility] RAD 31 WEEKS GESTATION OF P REGNANCY [id number] 06/12/2019 11:15:00 23:59:59 CLS Outpatient HEIDI SALCIDO DO [facility] RAD SURVEY. [id number] 05/02/2019 10:32:00 23:59:59 CLS Outpatient HEIDI SALCIDO DO [facility] RAD MATERNAL ATYPICAL ANIBO DY AFFECTING [id number] 04/29/2019 10:37:00 12:10:00 DIS Outpatient RUPERTO BOOTH APRN [facility] ER FALL - R FOOT PAIN / 6 MONTHS PREG [id number] 04/03/2019 11:11:00 23:59:59 CLS Outpatient HEIDI SALCIDO DO [facility] RAD FETUS PRESENT DURING AR EGNANCY IN SECOND TRIMESTER [id number] 08/11/2019 18:32:00 Document Registration
[2019-08-13 16:54] VITALS: BP 129/81
[2019-08-13 20:24] VITALS: BP 130/80
--- NOTE | 2019-08-13 20:28 | NUR ---
pt resting in bed, assessment completed. pt denies any concerns at this time. pad and panties given. pt shower set up, states she is going to shower here shortly. plan of care discussed with pt. pt denies any needs. will continue to monitor.
[2019-08-14] MEDS: IBUPROFEN 600 MG (MOTRIN) TAB PO SCH ×2 (00:02→07:19)
[2019-08-14 02:00] VITALS: BP 124/82
[2019-08-14] MEDS: ACETAMINOPHEN 500 MG TAB (TYLENOL) PO SCH (05:06)
--- NOTE | 2019-08-14 07:17 | Postpartum Progress Note ---
Note Note Day # 2 Subjective: Patient is without complaints. Ambulating, voiding. Tolerating a regular diet without nausea or vomiting. Normal lochia. Pain is well controlled with oral pain medications. Breast feeding without complaints. Denies having any SOB, cough, fever, chills, lower extremity swelling or lower extremity pain Objective: Physical Exam: General - Alert and oriented, no apparent distress Abdomen - Soft, appropriately tender to palpation, non-distended, fundus firm at umbilicus Extremities - no edema, negative Jf's bilaterally Assessment: post- day # 2, status post vaginal delivery. Recovering well, hemodynamically stable Plan: Routine care. Encourage breast feeding. Encourage ambulation. Ferrous sulfate supplementation. Plan for discharge today Vitals - Labs Vital Signs - I&O Vital Signs Date Time Temp Pulse Resp B/P (MAP) Pulse Ox O2 Delivery O2 Flow Rate FiO2 08/14/19 02:00 36.6 92 18 124/82 (96) 98 Room Air 08/13/19 20:24 36.7 92 18 130/80 (97) 98 Room Air 08/13/19 16:54 36.9 94 18 129/81 (97) 98 Room Air 08/13/19 10:48 36.9 89 18 121/74 (90) 98 Room Air Labs Microbiology 08/11/19 Urine Culture - Final, Complete Normal skin jacqui FLYNN JI,MED STUDENT Aug 14, 2019 07:17
[2019-08-14 07:25] VITALS: BP 137/84
[2019-08-14 07:30] VITALS: BP 137/84
[2019-08-14] MEDS: FERROUS SULF 325 MG (IRON) TAB PO SCH (07:32)
[2019-08-14] MEDS: DOCUSATE SODIUM 100 MG (COLACE) CAP PO SCH (07:32)
[2019-08-14] MEDS: PRENATAL VITAMIN 1 EA TAB PO SCH (07:34)
[2019-08-14] MEDS ORDERED: IBUP-844 PO (09:12)
[2019-08-14] MEDS ORDERED: ACET-93 PO (09:12)
[2019-08-14] MEDS ORDERED: FERR325T18 PO (09:12)
--- NOTE | 2019-08-14 09:18 | Short Stay Summary ---
Discharge Summary Hospital Course Was the Problem List Reviewed?: Yes Final Diagnosis: Labor, GBS positive Hospital Course Date of Admission: Aug 11, 2019 at 18:55 Admission Diagnosis : Family Physician/Provider: Boris Sahni DO Date of Discharge: 08/14/19 Discharge Diagnosis: [ ] Hospital Course: [ ] Labs and Pending Lab Test: Microbiology 08/11/19 Urine Culture - Final, Complete Normal skin jacqui Home Meds Active Acetaminophen 500 Mg Tablet 1,000 Mg PO Q8HR Ferrous Sulfate 325 Mg Tablet 325 Mg PO DAILY Ibu (Ibuprofen) 600 Mg Tablet 600 Mg PO Q6HR Reported Formula ( Vit W-Ca,Fe,FA(<1 mg)) 1 Each Tablet 1 Each PO Assessment/Pt Instructions follow up in 6 weeks ND home Instructions given Discharge Instructions Discharge Diet: No Restrictions Activity as Tolerated: Yes Discharge Physical Examination General Appearance: Alert HEENT: Atraumatic Respiratory: Clear to Auscultation, Normal Air Movement Cardiovascular: Regular Rate, Normal S1, Normal S2 Abdominal: Normal Bowel Sounds Allergies: Coded Allergies: Penicillins (Verified Allergy, Mild, 04/29/19) Discharge Summary Date of Admission Aug 11, 2019 at 18:55 Date of Discharge Discharge Date: Aug 14, 2019 Admission Diagnosis Labor 38 + weeks Group b strep positive HEIDI SALCIDO DO Aug 14, 2019 09:18
--- NOTE | 2019-08-14 10:52 | NUR ---
home instructions given - pt verbalized understanding. Will await 's circumcision, labs and discharge.
--- NOTE | 2019-08-14 13:10 | NUR ---
Discharged to home - accompanied by nursing staff and spouse.
== END 2019-08-14 13:10 | disposition home or self-care (01) | DRG 807 ==
LOC: LDRP 17:40 → WSo 17:40 → LDRP 18:55 → WSo 18:55 → LDRP 08-12 20:30
PROVIDERS: ADMIT Obstetrics & Gynecology; ATTEND Obstetrics & Gynecology
PROC: 10E0XZZ Delivery of Products of Conception, External Approach (ICD-10-PCS; principal; 2019-08-12)
PROC: 0HQ9XZZ Repair Perineum Skin, External Approach (ICD-10-PCS; 2019-08-12)
DX: O36.8130 Decreased fetal movements, third trimester, not applicable or unspecified (principal); O62.0 Primary inadequate contractions; O99.824 Streptococcus B carrier state complicating childbirth; O70.0 First degree perineal laceration during delivery; Z37.0 Single live birth; Z3A.38 38 weeks gestation of pregnancy; Z88.0 Allergy status to penicillin
CPT/HCPCS: 36415; 81000; 85025; 86850; 86900; 86901; 87088; 99212

== ENCOUNTER 2020-03-23 00:04 | Emergency (ER) | payer BC ==
[~2020-03-23] VITALS: Ht 170 cm; Wt 86.0 kg
[~2020-03-23 00:04] MED LIST changes: +ACET-93 PO; +FERR325T18 PO; +IBUP-844 PO
[2020-03-23 00:14] VITALS: BP 126/92
[2020-03-23 00:36] LABS: BILIRUBIN,URINE NEGATIVE (NEGATIVE); CLARITY,URINE SL CLOUDY; COLOR,URINE YELLOW; GLUCOSE, URINE (UA) NEGATIVE (NEGATIVE); KETONES,URINE NEGATIVE (NEGATIVE); LEUKOCYTE ESTERASE ,URINE NEGATIVE (NEGATIVE); NITRITE,URINE NEGATIVE (NEGATIVE); PROTEIN,URINE NEGATIVE (NEGATIVE)
[2020-03-23 00:48] LABS: BACTERIA,URINE MODERATE /HPF; GRANULAR CASTS,URINE 0-2 /LPF; WBC,URINE 0-2 /HPF
[2020-03-23 00:49] LABS: AMPHETAMINE SCREEN, URINE POSITIVE (NEGATIVE); BARBITURATE SCREEN URINE NEGATIVE (NEGATIVE); BENZODIAZEPINES SCREEN URINE POSITIVE (NEGATIVE); CANNABINOID SCREEN, URINE POSITIVE (NEGATIVE); COCAINE SCREEN URINE NEGATIVE (NEGATIVE); HCG,QUALITATIVE URINE NEGATIVE (NEGATIVE); METHADONE STAT NEGATIVE (NEGATIVE); METHAMPHETAMINE SCREEN URINE S POSITIVE (NEGATIVE); OPIATE SCREEN URINE NEGATIVE (NEGATIVE); OXYCODONE STAT NEGATIVE (NEGATIVE); PROPOXYPHENE STAT NEGATIVE (NEGATIVE); TRICYCLIC ANTIDEPRESSANTS SCRE NEGATIVE (NEGATIVE)
--- NOTE | 2020-03-23 01:48 | ED General ---
General Chief Complaint: Foreign Body Stated Complaint: SHARPIE IN RECTUM Nursing Triage Note: Pt has a sharpie marker in her rectum; states onset was around 2300 last night. Nursing Sepsis Screen: No Definite Risk Source of Information: Patient History of Present Illness Date Seen by Provider: Mar 23, 2020 Time Seen by Provider: 00:17 Initial Comments PT ARRIVES VIA POV FROM HOME PT STATES SHE AND HER WERE "PLAYING AROUND" AND STATES SHE HAS A BLACK SHARPIE MARKER IN HER RECTUM OCCURRED AN HOUR AGO NO RECTAL PAIN OR BLEEDING NO HISTORY OF SIMILAR LMP--2 WEEKS AGO, NORMAL, WITH VASECTOMY PCP: TALAT Allergies and Home Medications Allergies Coded Allergies: Penicillins (Verified Allergy, Mild, 04/29/19) Home Medications Acetaminophen 500 Mg Tablet, 1,000 MG PO Q8HR Prescribed by: HEIDI SALCIDO on 08/14/19911 Ferrous Sulfate 325 Mg Tablet, 325 MG PO DAILY Prescribed by: HEIDI SALCIDO on 08/14/19911 Ibuprofen 600 Mg Tablet, 600 MG PO Q6HR Prescribed by: HEIDI SALCIDO on 08/14/19911 Patient Home Medication List Home Medication List Reviewed: Yes Review of Systems Review of Systems Constitutional: no symptoms reported Gastrointestinal: see HPI Genitourinary: no symptoms reported LMP: Mar 09, 2020 Psychiatric/Neurological: Anxiety Past Gdhtkjr-Ekilql-Fkxiyw Hx Patient Social History Alcohol Use: Regular Use (DRINKS WINE DAILY) Recreational Drug Use: Yes (METH, THC, BENZO'S ) Drug of Choice: METH, THC, BENZO'S Smoking Status: Current Everyday Smoker (1/2 PPD) Type Used: Cigarettes 2nd Hand Smoke Exposure: No Recent Foreign Travel: No Contact w/Someone Who Travel: No Recent Infectious Disease Expo: No Immunizations Up To Date Tetanus Booster (TDap): Less than 5yrs Date of Influenza Vaccine: Apr 12, 2019 Past Medical History Surgeries: No Respiratory: No Cardiac: No Neurological: No : No Last Menstrual Period: Mar 09, 2020 Sexually Transmitted Disease: No HIV/AIDS: No Genitourinary: No Gastrointestinal: No Musculoskeletal: No Endocrine: No HEENT: No Cancer: No Psychosocial: No Integumentary: No Blood Disorders: No Physical Exam Vital Signs Vital Signs - First Documented 03/23/20 00:14 Pulse 95 Resp 20 B/P (MAP) 126/92 (103) Pulse Ox 99 O2 Delivery Room Air Capillary Refill : Less Than 3 Seconds Height, Weight, BMI Height: '" Weight: lbs. oz. kg; 29.00 BMI Method: General Appearance: Other (PT WITH CONSTANT MOVEMENTS, CANNOT SIT OR LAY STILL, TALKS RAPIDLY AND SPEECH IS SOMEWHAT ERRATIC. PT MOVES, SITS, WALKS, ALL WITHOUT ANY DISCOMFORT. ) Gastrointestinal: Non Tender, Soft Rectal: Normal Exam, Normal Rectal Tone, Heme Negative Stool, Hemorrhoids; No Tenderness; Other (NO BLEEDING OR FOREIGN BODY OR EXTERNAL EVIDENCE OF TRAUMA. NO TENDERNESS) Genital/Rectal: Normal Genital Exam, Normal Rectal Exam, Other (VAGINAL EXAM--NO FOREIGN BODY . NO BLEEDING. NO DISCHARGE. NO EVIDENCE OF TRAUMA. NO TENDERNESS) Progress/Results/Core Measures Suspected Sepsis Recent Fever Within 48 Hours: No Infection Criteria Present: None New/Unexplained Altered Menta: No Sepsis Screen: No Definite Risk SIRS Temperature: Pulse: 95 Respiratory Rate: 20 Blood Pressure 126 /92 Mean: 103 Results/Orders Lab Results Laboratory Tests Test 03/23/20 00:25 Range/Units Urine Color YELLOW Urine Clarity SL CLOUDY Urine pH 6.0 5-9 Urine Specific [place] >=1.030 1.016-1.022 Urine Protein NEGATIVE NEGATIVE Urine Glucose (UA) NEGATIVE NEGATIVE Urine Ketones NEGATIVE NEGATIVE Urine Nitrite NEGATIVE NEGATIVE Urine Bilirubin NEGATIVE NEGATIVE Urine Urobilinogen 0.2 < = 1.0 MG/DL Urine Leukocyte Esterase NEGATIVE NEGATIVE Urine RBC (Auto) NEGATIVE NEGATIVE Urine RBC NONE /HPF Urine WBC 0-2 /HPF Urine Squamous Epithelial Cells 2-5 /HPF Urine Crystals NONE /LPF Urine Bacteria MODERATE H /HPF Urine Casts PRESENT /LPF Urine Granular Casts 0-2 H /LPF Urine Mucus SMALL H /LPF Urine Culture Indicated YES Urine Test NEGATIVE NEGATIVE Urine Opiates Screen NEGATIVE NEGATIVE Urine Oxycodone Screen NEGATIVE NEGATIVE Urine Methadone Screen NEGATIVE NEGATIVE Urine Propoxyphene Screen NEGATIVE NEGATIVE Urine Barbiturates Screen NEGATIVE NEGATIVE Ur Tricyclic Antidepressants Screen NEGATIVE NEGATIVE Urine Phencyclidine Screen NEGATIVE NEGATIVE Urine Amphetamines Screen POSITIVE H NEGATIVE Urine Methamphetamines Screen POSITIVE H NEGATIVE Urine Benzodiazepines Screen POSITIVE H NEGATIVE Urine Cocaine Screen NEGATIVE NEGATIVE Urine Cannabinoids Screen POSITIVE H NEGATIVE My Orders Orders - FLOYD ALVAREZ DO Drug Screen Stat (Urine) (03/23/20 00:29) Hcg,Qualitative Urine (03/23/20 00:29) Ua Culture If Indicated (03/23/20 00:29) Urine Culture (03/23/20 00:25) Abdomen/Kub 1[place] (03/23/20 00:52) Ct Pelvis Wo (03/23/20 01:14) Vital Signs/I&O 03/23/20 00:14 Pulse 95 Resp 20 B/P (MAP) 126/92 (103) Pulse Ox 99 O2 Delivery Room Air Capillary Refill : Less Than 3 Seconds Blood Pressure Mean: 103 Progress Note : Progress Note PT WAS BEING DISMISSED, PT STATES THAT HAS JUST FOUND THE "SHARPIE" AT HOME Diagnostic Imaging Comments KUB--NO FOREIGN BODY, PENDING RADIOLOGIST REVIEW CT PELVIS--NO FOREIGN BODY, MILD RECTAL WALL THICKENING WITH MILD ADJACENT IN FLAMMATION. NO PNEUMATOSIS OR PNEUMOPERITONEUM PER [facility] VIA FAX AT 0146. Reviewed: Reviewed by Me Departure Impression Primary Impression: NO FOREIGN BODY IN RECTUM OR VAGINA Additional Impressions: External hemorrhoids Illicit drug use Disposition: HOME, SELF-CARE Condition: Stable Departure-Patient Inst. Referrals: HERNÁN RANGEL DO (PCP/Family) Primary Care Physician Patient Instructions: Hemorrhoids (DC) Add. Discharge Instructions: DO NOT PUT ANY FOREIGN OBJECTS IN ANY ORIFICE. FOLLOW UP WITH YOUR DR NEEDED All discharge instructions reviewed with patient and/or family. Voiced understanding. FLOYD ALVAREZ DO Mar 23, 2020 01:48
--- NOTE | 2020-03-23 07:18 | Diagnostic Imaging Report ---
PROCEDURE: CT pelvis without contrast. TECHNIQUE: Multiple contiguous axial images were obtained through the pelvis without the use of intravenous contrast. Sagittal and coronal reformations were performed. Auto Exposure Controls were utilized during the CT exam to meet ALARA standards for radiation dose reduction. INDICATION: Evaluate for rectal foreign body. Comparison is made with KUB from earlier in the same day. FINDINGS: There are no CT findings of a radiopaque foreign body within the rectum. There is minimal perirectal fat stranding which could be secondary inflammatory changes. There are no findings of free air or free fluid. There is no evidence of bowel obstruction. The appendix is visualized and appears normal. Uterus, adnexa and urinary bladder unremarkable. No acute or suspicious osseous abnormality. 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 IMPRESSION: 1. No CT evidence of radiodense rectal foreign body. 2. Minimal perirectal fat stranding could be secondary inflammatory changes. 3. I agree with the preliminary stat rad report. Dictated by: Dictated on workstation # [id number]
--- NOTE | 2020-03-23 07:19 | Diagnostic Imaging Report ---
HISTORY: Evaluate for foreign object in the rectum, sharpie marker, abdominal pain COMPARISON: None TECHNIQUE: Frontal view of the lower abdomen FINDINGS: No foreign body is seen. No distended loops of bowel are seen. There is no large collection of free air. Multiple phleboliths are seen in the pelvis. There is a linear hyperdensity in the midline of the abdomen, thought to represent external piercing. IMPRESSION: 1. No internal radiopaque foreign body is seen. Dictated by: Dictated on workstation # [id number]
== END 2020-03-23 02:06 | disposition home or self-care (01) ==
LOC: EDUNIT# 00:04 → ER 00:08
DX: K64.4 Residual hemorrhoidal skin tags (principal); F19.90 Other psychoactive substance use, unspecified, uncomplicated; F17.210 Nicotine dependence, cigarettes, uncomplicated; Z88.0 Allergy status to penicillin
CPT/HCPCS: 72192; 74018; 80306; 81000; 84703; 87088

== ENCOUNTER 2022-06-15 15:26 | Emergency (ER) | payer BC ==
[~2022-06-15] VITALS: Ht 170 cm; Wt 93.0 kg
--- NOTE | 2022-06-15 15:51 | ED Lower Extremity ---
General Chief Complaint: Trauma-Non Activation Stated Complaint: FALL - RT KNEE SWELLING,DIFFICULTY WALKING Nursing Triage Note: PT AMB [place] STATES FELL WEDNESDAY TRIPPED OVER MEDIUM, DENIES LOC. PT CO OF R KNEE PAIN, PT HAS SWELLING, PAIN AND BRUISING. Source: patient Exam Limitations: no limitations History of Present Illness Date Seen by Provider: Jun 15, 2022 Time Seen by Provider: 15:31 Initial Comments 41-year-old female with no pertinent past medical history coming in due to right knee pain and swelling. She was at a wedding on Wednesday, tripped over a curb, twisted and landed on her right knee. Having severe, constant, sharp pain in the area, worse with noma, better with rest. Also better with ibuprofen which she has been taking essentially knjslf-tul-lbatv. She otherwise denies any other acute complaints. Last tetanus vaccine roughly 11 years ago. Allergies and Home Medications Allergies Coded Allergies: Penicillins (Verified Allergy, Mild, 04/29/19) Patient Home Medication List Home Medication List Reviewed: Yes Acetaminophen (Acetaminophen) 500 Mg Tablet, 1,000 MG PO Q8HR Prescribed by: HEIDI SALCIDO on 08/14/19911 Ferrous Sulfate (Ferrous Sulfate) 325 Mg Tablet, 325 MG PO DAILY Prescribed by: HEIDI SALCIDO on 08/14/19911 Ibuprofen (Ibu) 600 Mg Tablet, 600 MG PO Q6HR Prescribed by: HEIDI SALCIDO on 08/14/19 09 Vit W-Ca,Fe,FA(<1 mg) ( Formula) 1 Each Tablet, 1 EACH PO, (Reported) Entered as Reported by: HUANG ABDI on 04/29/19 1122 Review of Systems Constitutional: No fever EENTM: no symptoms reported Respiratory: no symptoms reported Cardiovascular: no symptoms reported Gastrointestinal: no symptoms reported Genitourinary: no symptoms reported Musculoskeletal: see HPI Skin: no symptoms reported Psychiatric/Neurological: No Symptoms Reported All Other Systems Reviewed Negative Unless Noted: Yes Past Dupsqqc-Sulkxe-Hlzopp Hx Patient Social History Tobacco Use?: No Smoking Status: Former Smoker Use of E-Cig and/or Vaping dev: Yes E-Cig or Vaping type used: Nicotine Use of E-Cig and/or Vaping Leo: Current Everyday User Substance use?: Yes Substance type: Marijuana Substance frequency: Couple times a week Alcohol Use?: Yes Alcohol type: Wine Alcohol Frequency: Once in a while Pt feels they are or have been: No Immunizations Up To Date Tetanus Booster (TDap): Less than 5yrs Influenza Vaccine Up-to-Date: No; Not Current Past Medical History Surgeries: No Respiratory: No Cardiac: No Neurological: No Sexually Transmitted Disease: No HIV/AIDS: No Genitourinary: No Gastrointestinal: No Musculoskeletal: No Endocrine: No HEENT: No Cancer: No Psychosocial: No Integumentary: No Blood Disorders: No Physical Exam Vital Signs Vital Signs - First Documented 06/15/22 15:30 Temp 36.8 Pulse 108 Resp 18 B/P (MAP) 133/92 (106) Pulse Ox 97 Capillary Refill : Less Than 3 Seconds Height, Weight, BMI Height: '" Weight: lbs. oz. kg; 32.00 BMI Method: General Appearance: WD/WN, no apparent distress HEENT: PERRL/EOMI, normal ENT inspection, pharynx normal Neck: non-tender, full range of motion, supple, normal inspection Cardiovascular: regular rate, rhythm, no edema, no murmur Respiratory: chest non-tender, lungs clear, normal breath sounds, no respiratory distress, no accessory muscle use Gastrointestinal: normal bowel sounds, non tender, soft; No guarding, No rebound Hips: bilateral hip non-tender, bilateral hip normal inspection, bilateral hip normal range of motion, bilateral hip no evidence of injury Legs: left leg non-tender, left leg normal inspection, left leg normal range of motion, left leg no evidence of injury; right leg other (Some bruising and tenderness to the anterior proximal right tibia) Knees: right knee bone tenderness, right knee ecchymosis, right knee joint effusion, right knee pain, right knee soft tissue tenderness, right knee swe lling, right knee other (Mitesh difficult to assess due to pain, but no definitive endpoint, PCL and LCL without laxity, maximal tenderness over the patella but no otherwise joint line tenderness) Ankles: bilateral ankle non-tender, bilateral ankle normal inspection, bilateral ankle normal range of motion, bilateral ankle no evidence of injury Neurologic/Tendon: normal sensation, normal motor functions, normal tendon functions Neurologic/Psychiatric: no motor/sensory deficits, alert, normal mood/affect Skin: normal color, warm/dry Lymphatic: no adenopathy Progress/Results/Core Measures Results/Orders My Orders Orders - CHARLINE CANTOR MD Tibia/Fibula, Right, 2 Views (06/15/22 15:47) Knee, Right, 3 Views (06/15/22 15:47) Acetaminophen Tablet (Tylenol Tablet) (06/15/22 16:00) Dipht,Pertuss(Acell),Tet Adult (Boostrix (06/15/22 16:00) Medications Given in ED Current Medications Medications Dose Ordered Sig/Chester Route Start Time Stop Time Status Last Admin Dose Admin Acetaminophen 1,000 mg ONCE ONCE PO 06/15/22 16:00 06/15/22 16:01 DC 06/15/22 15:54 1,000 MG Diphtheria/ Tetanus/Acell Pertussis 0.5 ml ONCE ONCE IM 06/15/22 16:00 06/15/22 16:01 DC 06/15/22 16:13 0.5 ML Vital Signs/I&O 06/15/22 15:30 Temp 36.8 Pulse 108 Resp 18 B/P (MAP) 133/92 (106) Pulse Ox 97 Blood Pressure Mean: 106 Progress Progress Note : Progress Note 41-year-old female with above history coming in due to right knee pain after a fall. ABCs were intact and vitals were stable on presentation. Physical exam with a joint effusion and tenderness over the right knee. Mitesh is positive as well concerning for an ACL tear. Given Tylenol for pain. X-ray of the right knee and tib-fib ordered and interpreted by me showing no fracture or dislocation. She does have an impressive joint effusion. Offered the patient crutches, but she does have them at home. I wrapped her knee in an Momo bandage to help with the effusion. I believe she is stable for discharge with outpatient follow-up. She was sent home with strict return precautions Diagnostic Imaging Diagonstic Imaging: Xray (right knee and tib/fib) Comments [facility]. [place], [place] NAME: MEGAN VENCES [facility] REC#: [id number] PT STATUS: REG ER : 1980 PHYSICIAN: CHARLINE CANTOR MD ADMIT DATE: 06/15/22/ER Signed Date of Exam:06/15/22 KNEE, RIGHT, 3 VIEWS INDICATION: Right knee pain. FINDINGS: Three views of the right knee show a joint effusion in the suprapatellar bursa. There is no fracture or dislocation. Joint spaces are well maintained. IMPRESSION: Right knee joint effusion. Dictated by: Dictated on workstation # [id number] Dict: 06/15/22 1603 Trans: 06/15/22 1606 [id number] Interpreted by: NAYE ALVAREZ MD Electronically signed by: NAYE ALVAREZ MD 06/15/22 1606 [facility] [place], [place] NAME: MEGAN VENCES [facility] REC#: [id number] PT STATUS: REG ER : 1980 PHYSICIAN: CHARLINE CANTOR MD ADMIT DATE: 06/15/22/ER Signed Date of Exam:06/15/22 TIBIA/FIBULA, RIGHT, 2 VIEWS INDICATION: Right lower leg pain. FINDINGS: AP and lateral views of the right tibia and fibula show no fracture or dislocation. IMPRESSION: Negative right tibia and fibula. Dictated by: Dictated on workstation # [id number] Dict: 06/15/22 1602 Trans: 06/15/22 1606 [id number] Interpreted by: NAYE ALVAREZ MD Electronically signed by: NAYE ALVAREZ MD 06/15/22 1606 Departure Impression Primary Impression: Fall Qualified Codes: W19.XXXA - Unspecified fall, initial encounter Additional Impression: Knee effusion, right Disposition: 01 HOME, SELF-CARE Condition: Stable Departure-Patient Inst. Decision time for Depature: 16:13 Referrals: HERNÁN RANGEL DO (PCP) Primary Care Physician LUI UP MD Patient Instructions: Internal Derangement of the Knee (DC) Add. Discharge Instructions: I am concerned your ACL is torn on that right knee, potentially more. Please follow-up with Dr. Up discuss your options. Continue to take ibuprofen and/or Tylenol as needed. Continue to ice it as well. Scripts Hydrocodone Bit/Acetaminophen (HYDROcodone/APAP 5 MG/325 MG TAB) 1 Tab Tab 1 TAB PO Q6H PRN for PAIN-SEVERE (8-10) for 3 Days, #12 TAB 0 Refills Prov: CHARLINE CANTOR MD 06/15/22 CHARLINE CANTOR MD Jun 15, 2022 15:51
[2022-06-15] MEDS ORDERED: TETANUS,DIPTH,PERTUSS P/F (BOOSTRIX) 0.5 ML VIAL IM ONE (16:00)
[2022-06-15] MEDS ORDERED: ACETAMINOPHEN 500 MG TAB (TYLENOL) PO ONE (16:00)
--- NOTE | 2022-06-15 16:05 | Diagnostic Imaging Report ---
INDICATION: Right lower leg pain. FINDINGS: AP and lateral views of the right tibia and fibula show no fracture or dislocation. IMPRESSION: Negative right tibia and fibula. Dictated by: Dictated on workstation # [id number]
--- NOTE | 2022-06-15 16:06 | Diagnostic Imaging Report ---
INDICATION: Right knee pain. FINDINGS: Three views of the right knee show a joint effusion in the suprapatellar bursa. There is no fracture or dislocation. Joint spaces are well maintained. IMPRESSION: Right knee joint effusion. Dictated by: Dictated on workstation # [id number]
[2022-06-15] MEDS ORDERED: ACHD5005 PO (16:16)
[2022-06-15 16:18] VITALS: BP 133/92
== END 2022-06-15 16:19 | disposition home or self-care (01) ==
LOC: EDUNIT# 15:26 → ER 15:30
DX: S80.01XA Contusion of right knee, initial encounter (principal); Z87.891 Personal history of nicotine dependence; W01.0XXA Fall on same level from slipping, tripping and stumbling without subsequent striking against object, initial encounter; X50.1XXA Overexertion from prolonged static or awkward postures, initial encounter
CPT/HCPCS: 73562; 73590; 90715

== ENCOUNTER 2023-03-18 08:03 | Emergency (ER) | payer BC ==
[~2023-03-18] VITALS: Ht 165 cm; Wt 100.0 kg
[~2023-03-18 08:03] MED LIST changes: +ACHD5005 PO
[2023-03-18 08:20] LABS: BASOPHILS # (AUTO) 0.1 10^3/uL (0.0-0.1); BASOPHILS % (AUTO) 1 % (0-10); EOSINOPHILS # (AUTO) 0.2 10^3/uL (0.0-0.3); EOSINOPHILS % (AUTO) 2 % (0-10); HEMATOCRIT 45 % (35-52); HEMOGLOBIN 15.6 g/dL (11.5-16.0); LYMPHOCYTES # (AUTO) 2.5 10^3/uL (1.0-4.0); LYMPHOCYTES % (AUTO) 28 % (12-44); MEAN CORPUSCULAR HEMOGLOBIN 32 pg (25-34); MEAN CORPUSCULAR HGB CONC 34 g/dL (32-36); MEAN CORPUSCULAR VOLUME 92 fL (80-99); MEAN PLATELET VOLUME 9.8 fL (9.0-12.2); MONOCYTES # (AUTO) 0.5 10^3/uL (0.0-1.0); MONOCYTES % (AUTO) 5 % (0-12); NEUTROPHILS # (AUTO) 5.9 10^3/uL (1.8-7.8); NEUTROPHILS % (AUTO) 65 % (42-75); PLATELET COUNT 261 10^3/uL (130-400); WHITE BLOOD COUNT 9.1 10^3/uL (4.3-11.0)
--- NOTE | 2023-03-18 08:23 | ED Neurological Problem ---
General Chief Complaint: Neurological Problems Stated Complaint: STROKE-LIKE SYMPTOMS Source: patient Exam Limitations: no limitations History of Present Illness Date Seen by Provider: Mar 18, 2023 Time Seen by Provider: 08:06 Initial Comments 42-year-old female with no pertinent past medical history coming in due to noticing weakness on the left side of her face. She states she has not felt well for months, has noticed changes in her face over the past couple weeks, but definitely noticed a difference last night. This morning, she noticed the left side of her face was drooping when she was trying to smile. She dropped her kids off at school, and was told she looks like she has Arriaga's palsy. She says high blood pressure runs in her family, but she does not really go to the doctor. She does smoke. She does have a mild headache as well and vomited once last night. She is otherwise denying any chest pain, shortness of breath, abdominal pain, current nausea, focal weakness in any extremity or numbness in any extremity, or any other concerns. He is currently menstruating. Allergies and Home Medications Allergies Coded Allergies: Penicillins (Verified Allergy, Mild, 04/29/19) Patient Home Medication List Home Medication List Reviewed: Yes Acetaminophen (Acetaminophen) 500 Mg Tablet, 1,000 MG PO Q8HR Prescribed by: HEIDI SALCIDO on 08/14/19911 Ferrous Sulfate (Ferrous Sulfate) 325 Mg Tablet, 325 MG PO DAILY Prescribed by: HEIDI SALCIDO on 08/14/19911 Hydrocodone Bit/Acetaminophen (HYDROcodone/APAP 5 MG/325 MG TAB) 1 Tab Tab, 1 TAB PO Q6H PRN for PAIN-SEVERE (8-10) Prescribed by: CHARLINE CANTOR on 06/15/22 1616 Ibuprofen (Ibu) 600 Mg Tablet, 600 MG PO Q6HR Prescribed by: HEIDI SALCIDO on 08/14/19 09 Lisinopril (Lisinopril) 5 Mg Tablet, 5 MG PO DAILY Prescribed by: CHARLINE CANTOR on 03/18/23 1016 Ondansetron (Ondansetron Odt) 4 Mg Tab.rapdis, 4 MG SL Q6H PRN for NAUSEA/VOMITING Prescribed by: CHARLINE CANTOR on 03/18/23 1016 Prednisone (Prednisone) 20 Mg Tab, 60 MG PO DAILY Prescribed by: CHARLINE CANTOR on 03/18/23 1016 Vit W-Ca,Fe,FA(<1 mg) ( Formula) 1 Each Tablet, 1 EACH PO, (Reported) Entered as Reported by: HUANG ABDI on 04/29/19 1122 Valacyclovir HCl (Valacyclovir) 1,000 Mg Tablet, 1,000 MG PO TID Prescribed by: CHARLINE CANTOR on 03/18/23 1016 Review of Systems Review of Systems Constitutional: No fever Eyes: No Symptoms Reported Ears, Nose, Mouth, Throat: no symptoms reported Respiratory: no symptoms reported Cardiovascular: no symptoms reported Gastrointestinal: no symptoms reported Genitourinary: no symptoms reported Musculoskeletal: no symptoms reported Skin: no symptoms reported Psychiatric/Neurological: See HPI Endocrine: No Symptoms Reported All Other Systems Reviewed Negative Unless Noted: Yes Past Ddpbhqh-Liwfru-Miewwh Hx Patient Social History Tobacco Use?: Yes Tobacco type used: Cigarettes Immunizations Up To Date Tetanus Booster (TDap): Less than 5yrs Past Medical History Surgeries: No Orthopedic, Tonsillectomy Respiratory: No Cardiac: No Neurological: No Sexually Transmitted Disease: No HIV/AIDS: No Genitourinary: No Gastrointestinal: No Musculoskeletal: No Endocrine: No HEENT: No Cancer: No Psychosocial: No Integumentary: No Blood Disorders: No Physical Exam Vital Signs Vital Signs - First Documented 03/18/23 08:08 Temp 36.8 Pulse 99 Resp 22 B/P (MAP) 160/119 (133) Pulse Ox 97 O2 Delivery Room Air Capillary Refill : Height, Weight, BMI Height: '" Weight: lbs. oz. kg; 32.00 BMI Method: General Appearance: WD/WN, other (tearful) HEENT: PERRL/EOMI, normal ENT inspection, pharynx normal Neck: non-tender, full range of motion, supple, normal inspection Respiratory: chest non-tender, lungs clear, normal breath sounds, no respiratory distress, no accessory muscle use Cardiovascular: regular rate, rhythm, no edema, no murmur Gastrointestinal: normal bowel sounds, non tender, soft; No distended, No guarding, No rebound Back: normal inspection, no CVA tenderness Extremities: normal range of motion, non-tender, normal inspection, no pedal edema, no calf tenderness, normal capillary refill Neurologic/Psychiatric: no motor/sensory deficits, alert, normal mood/affect, oriented x 3, other (left sided facial droop otherwise normal CN exam) Crainal Nerves: normal hearing, normal speech, PERRL Coordination/Gait: normal finger to nose, normal gait Motor/Sensory: no motor deficit (for extremities), no sensory deficit, no pronator drift Stroke Onset of Symptoms Date of Onset of Symptoms: Mar 17, 2023 Time of Symptom Onset: 21:00 Onset of Symptoms: Yes NIH Stroke Scale Assessment Select: Initial Level of Consciousness: 0=Alert (0), Level of Consciousness- Questions: 0=Answers both month/age (0), LOC Commands: 0=Performs both tasks (0), Gaze: Normal (0), Visual Ambrocio: 0=No visual loss (0), Facial Movement (Facial Paresis): 2=Partial paralysis (2), Motor Function-Arms Right: 0=No drift (0), Motor Function-Arms Left: 0=No drift (0), Motor Function-Legs Right: 0=No drift (0), Motor Function-Legs Left: 0=No drift (0), Limb Ataxia: 0=Absent (0), Sensory: 1=Mild to Moderate loss (1), Best Language: 0=No aphasia (0), Dysarthria: 0=Normal (0), Extinction & Inattention: 0=No abnormality (0), Total: 3 Stroke Thrombolytic Exclusion TPA Contraindication: Yes (started more than 12 hours ago) IV - TPa Received IV - TPa Procedure Performed?: No Progress/Results/Core Measures Results/Orders Lab Results Laboratory Tests Test 03/18/23 08:09 03/18/23 08:10 Range/Units Glucometer 123 H 70-110 MG/DL White Blood Count 9.1 4.3-11.0 10^3/uL Red Blood Count 4.92 3.80-5.11 10^6/uL Hemoglobin 15.6 11.5-16.0 g/dL Hematocrit 45 35-52 % Mean Corpuscular Volume 92 80-99 fL Mean Corpuscular Hemoglobin 32 25-34 pg Mean Corpuscular Hemoglobin Concent 34 32-36 g/dL Red Cell Distribution Width 12.7 10.0-14.5 % Platelet Count 261 130-400 10^3/uL Mean Platelet Volume 9.8 9.0-12.2 fL Immature Granulocyte % (Auto) 0 % Neutrophils (%) (Auto) 65 42-75 % Lymphocytes (%) (Auto) 28 12-44 % Monocytes (%) (Auto) 5 0-12 % Eosinophils (%) (Auto) 2 0-10 % Basophils (%) (Auto) 1 0-10 % Neutrophils # (Auto) 5.9 1.8-7.8 10^3/uL Lymphocytes # (Auto) 2.5 1.0-4.0 10^3/uL Monocytes # (Auto) 0.5 0.0-1.0 10^3/uL Eosinophils # (Auto) 0.2 0.0-0.3 10^3/uL Basophils # (Auto) 0.1 0.0-0.1 10^3/uL Immature Granulocyte # (Auto) 0.0 0.0-0.1 10^3/uL Prothrombin Time 12.5 12.2-14.7 SEC INR Comment 0.9 0.8-1.4 Activated Partial Thromboplast Time 25 24-35 SEC Sodium Level 138 135-145 MMOL/L Potassium Level 3.7 3.6-5.0 MMOL/L Chloride Level 106 98-107 MMOL/L Carbon Dioxide Level 22 21-32 MMOL/L Anion Gap 10 5-14 MMOL/L Blood Urea Nitrogen 9 7-18 MG/DL Creatinine 0.81 0.60-1.30 MG/DL Estimat Glomerular Filtration Rate 93 BUN/Creatinine Ratio 11 Glucose Level 114 H 70-105 MG/DL Calcium Level 9.4 8.5-10.1 MG/DL Corrected Calcium 9.0 8.5-10.1 MG/DL Total Bilirubin 1.4 H 0.1-1.0 MG/DL Aspartate Amino Transf (AST/SGOT) 24 5-34 U/L Alanine Aminotransferase (ALT/SGPT) 21 0-55 U/L Alkaline Phosphatase 49 40-136 U/L Troponin I < 0.028 <0.028 NG/ML Total Protein 8.2 6.4-8.2 GM/DL Albumin 4.5 3.2-4.5 GM/DL Serum Test, Qualitative NEGATIVE NEGATIVE My Orders Orders - CHARLINE CANTOR MD Cbc And Automated Diff (03/18/23 08:14) Protime With Inr (03/18/23 08:14) Partial Thromboplastin Time (03/18/23 08:14) Comprehensive Metabolic Panel (03/18/23 08:14) Troponin I Price (03/18/23 08:14) Hcg,Qualitative Serum (03/18/23 08:14) Chest 1 View, Ap/Pa Only (03/18/23 08:14) Ekg Tracing (03/18/23 08:14) Accucheck Stat ONCE (03/18/23 08:14) Ed Iv/Invasive Line Start (03/18/23 08:14) Vital Signs Stroke Patient Q15M (03/18/23 08:14) Ct Head Wo-R/O Stroke (03/18/23 08:14) O2 (03/18/23 08:14) Monitor-Rhythm Ecg Trace Only (03/18/23 08:14) Dysphagia Screening Tool Q10MX1 (03/18/23 08:14) Lorazepam Injection (Lorazepam Injection (03/18/23 08:30) Mri Brain W/O Contrast (03/18/23 09:23) Ketorolac Injection (Ketorolac Injection (03/18/23 10:30) Ondansetron Injection (Ondansetron Inj (03/18/23 10:30) Acetaminophen Tablet (Acetaminophen Ta (03/18/23 10:30) Medications Given in ED Current Medications Medications Dose Ordered Sig/Chester Route Start Time Stop Time Status Last Admin Dose Admin Lorazepam 0.5 mg ONCE ONCE IVP 03/18/23 08:30 03/18/23 08:31 DC 03/18/23 08:25 0.5 MG Vital Signs/I&O 03/18/23 08:08 Temp 36.8 Pulse 99 Resp 22 B/P (MAP) 160/119 (133) Pulse Ox 97 O2 Delivery Room Air Progress Progress Note : Progress Note 42-year-old female with above history coming in due to left-sided facial weak ness. ABCs were intact and vitals were stable on presentation. Glucose is appropriate. She is hypertensive on arrival, but not high enough to be of concern. 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 She does have some changes in sensation to her left face, thus we went ahead and did a stroke alert. CT head negative for acute findings my interpretation. NIH technically will be 3. She does not qualify for tenecteplase given she presented roughly 12 hours after symptom onset, potentially longer. Discussed the case with the neurologist at [facility]. Since that is not an absolute classic case for Arriaga's palsy, recommended an MRI. MRI brain ordered and no stroke or significant findings. 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 Additionally, white blood cell count normal, hemoglobin normal, creatinine normal, negative troponin. We will send prescription for steroids and valacyclovir. I believe she is stable for discharge with outpatient follow- up. She was sent home with strict return precautions Initial ECG Impression Date: Mar 18, 2023 Initial ECG Impression Time: 08:27 Initial ECG Rate: 72 Initial ECG Rhythm: Normal Sinus Comment QRS, normal axis, no significant ST changes or T wave abnormalities Diagnostic Imaging Diagonstic Imaging: Xray (chest), CT (head), MRI (brain) Comments [facility] [place] [place] NAME: MEGAN VENCES [facility] REC#: [id number] PT STATUS: REG ER : 1980 PHYSICIAN: CHARLINE CANTOR MD ADMIT DATE: 03/18/23/ER Draft Date of Exam:03/18/23 CT HEAD WO-R/O STROKE PROCEDURE: CT head wo r/o stroke. TECHNIQUE: Multiple contiguous axial images were obtained through the brain without the use of intravenous contrast. Auto Exposure Controls were utilized during the CT exam to meet ALARA standards for radiation dose reduction. INDICATION: Left facial weakness. No prior studies are available for comparison. The ventricles and sulci are within normal limits. No sulcal effacement or midline shift is identified. The bishop-white matter differentiation is maintained. No acute intra-axial or extra-axial hemorrhage is detected. The cisterns are patent. The visualized paranasal sinuses are clear. IMPRESSION: No acute intracranial process is identified. Dr. Cantor of the Emergency Department was notified of these results at 8:33 AM. Dictated on workstation # [id number] Dict: 03/18/2330 Trans: 03/18/2335 ELE[facility] [phone] Interpreted by: LORIN VERA MD Electronically signed by: [facility] [place] NAME: MEGAN VENCES [facility] REC#: [id number] PT STATUS: REG ER : 1980 PHYSICIAN: CHARLINE CANTOR MD ADMIT DATE: 03/18/23/ER Draft Date of Exam:03/18/23 CHEST 1 VIEW, AP/PA ONLY EXAMINATION: Chest 1 view HISTORY: Stroke COMPARISON: None available. FINDINGS: The lungs are clear without edema or pneumonia. No pleural effusion or pneumothorax. Heart size is normal. IMPRESSION: 1. Clear lungs. Dictated on workstation # [id number] Dict: 03/18/23858 Trans: 03/18/23 09[facility] [id number] Interpreted by: LISBETH SMITH MD Electronically signed by: [facility] [place] NAME: MEGAN VENCES [facility] REC#: [id number] PT STATUS: REG ER : 1980 PHYSICIAN: CHARLINE CANTOR MD ADMIT DATE: 03/18/23/ER Signed Date of Exam:03/18/23 MRI BRAIN W/O CONTRAST MRI BRAIN W/O CONTRAST Date: 03/18/2023 9:56 AM Indication: L facial weakness and numbness, c/f incomplete Arriaga's vs stroke Comparison: CT of the head 03/18/2023. Technique: Multiplanar multisequence MRI of the brain was performed without intravenous contrast using the standard protocol. Findings: No acute infarct. No acute or chronic hemorrhage. The ventricles are normal in size and configuration without hydrocephalus. The scalp and calvarium are normal. The pituitary and sella are normal. No Chiari malformation. The visualized upper cervical spine is normal. The visualized orbits and globes are normal. The visualized paranasal sinuses are clear. The mastoid air cells are clear. Normal flow voids within the vertebral, basilar, and internal carotid arteries indicating patency. IMPRESSION: No acute infarct, hemorrhage, mass, or hydrocephalus. Dictated by: Dictated on workstation # [id number] Dict: 03/18/23958 Trans: 03/18/23 1001 [facility] [id number] Interpreted by: RHIANNON BRUCE DO Electronically signed by: RHIANNON BRUCE DO 03/18/23 1001 Departure Impression Primary Impression: Arriaga's palsy Disposition: 01 HOME, SELF-CARE Condition: Stable Departure-Patient Inst. Decision time for Depature: 10:25 Referrals: [facility]/HERNÁN MARTIN DO (PCP) Primary Care Physician Patient Instructions: Arriaga's Palsy (DC) Add. Discharge Instructions: Fortunately this is not a stroke. This is caused by one of the nerves in your face that helps move it being damaged likely by something viral. In most people this does get better. Steroids and a virus medication were sent to your pharmacy which may help with this. Follow-up with your regular doctor kaylynn avila. If you get to the point where it is difficult to close her left eye, you may need to tape it shut at night to help get it shut. Ibuprofen and/or Tylenol as needed for headache. Nausea medicines were also sent to your pharmacy for you to take as needed. Radha is a blood pressure medicine that was also sent. You will take this daily. Please follow-up with a regular doctor. If you do not have one, you can call [facility] for an appointment. Their number is in this paperwork. Scripts Hydroxyzine HCl (Hydroxyzine HCl) 25 Mg Tablet 25 MG PO HS PRN for ANXIETY for 30 Days, #30 TAB Prov: CHARLINE CANTOR MD 03/18/23 Lisinopril (Lisinopril) 5 Mg Tablet 5 MG PO DAILY for 30 Days, #30 TAB Prov: CHARLINE CANTOR MD 03/18/23 Ondansetron (Ondansetron Odt) 4 Mg Tab.rapdis 4 MG SL Q6H PRN for NAUSEA/VOMITING for 5 Days, #20 TAB Prov: CHARLINE CANTOR MD 03/18/23 Valacyclovir HCl (Valacyclovir) 1,000 Mg Tablet 1000 MG PO TID for 7 Days, #21 TAB Prov: CHARLINE CANTOR MD 03/18/23 Prednisone (Prednisone) 20 Mg Tab 60 MG PO DAILY for 7 Days, #21 TAB 0 Refills Prov: CHARLINE CANTOR MD 03/18/23 Work/School Note: Family Work Note, Patient Received Medical Care In the Emergency Department On: Mar 18, 2023 Patient Will Be Able to Return to Work/School On: Mar 19, 2023 Work Release Form Date Seen in the Emergency Department: Mar 18, 2023 Return to Work: Mar 19, 2023 Restrictions: No Restrictions CHARLINE CANTOR MD Mar 18, 2023 08:23
[2023-03-18 08:32] LABS: ALBUMIN 4.5 GM/DL (3.2-4.5); CHLORIDE 106 MMOL/L (98-107); INR 0.9 (0.8-1.4); POTASSIUM 3.7 MMOL/L (3.6-5.0); PROTHROMBIN TIME PATIENT 12.5 SEC (12.2-14.7); SODIUM 138 MMOL/L (135-145)
[2023-03-18 08:33] LABS: CALCIUM 9.4 MG/DL (8.5-10.1)
[2023-03-18 08:35] LABS: GLUCOSE 114 MG/DL (70-105); TOTAL PROTEIN 8.2 GM/DL (6.4-8.2)
--- NOTE | 2023-03-18 08:35 | Diagnostic Imaging Report ---
PROCEDURE: CT head wo r/o stroke. TECHNIQUE: Multiple contiguous axial images were obtained through the brain without the use of intravenous contrast. Auto Exposure Controls were utilized during the CT exam to meet ALARA standards for radiation dose reduction. INDICATION: Left facial weakness. No prior studies are available for comparison. The ventricles and sulci are within normal limits. No sulcal effacement or midline shift is identified. The bishop-white matter differentiation is maintained. No acute intra-axial or extra-axial hemorrhage is detected. The cisterns are patent. The visualized paranasal sinuses are clear. IMPRESSION: No acute intracranial process is identified. Dr. Ventura of the Emergency Department was notified of these results at 8:33 AM. Dictated by: Dictated on workstation # [id number]
[2023-03-18 08:36] LABS: CARBON DIOXIDE 22 MMOL/L (21-32)
[2023-03-18 08:37] LABS: BILIRUBIN,TOTAL 1.4 MG/DL (0.1-1.0)
[2023-03-18 08:38] LABS: ALKALINE PHOSPHATASE 49 U/L (40-136); CREATININE SERUM 0.81 MG/DL (0.60-1.30); GFR ESTIMATED 93
[2023-03-18 08:39] LABS: BUN/CREATININE RATIO 11
[2023-03-18 08:41] LABS: ALANINE AMINOTRANSFERASE 21 U/L (0-55)
--- NOTE | 2023-03-18 09:04 | Diagnostic Imaging Report ---
EXAMINATION: Chest 1 view HISTORY: Stroke COMPARISON: None available. FINDINGS: The lungs are clear without edema or pneumonia. No pleural effusion or pneumothorax. Heart size is normal. IMPRESSION: 1. Clear lungs. Dictated by: Dictated on workstation # [id number]
--- NOTE | 2023-03-18 10:02 | Diagnostic Imaging Report ---
MRI BRAIN W/O CONTRAST Date: 03/18/2023 9:56 AM Indication: L facial weakness and numbness, c/f incomplete Arriaga's vs stroke Comparison: CT of the head 03/18/2023. Technique: Multiplanar multisequence MRI of the brain was performed without intravenous contrast using the standard protocol. Findings: No acute infarct. No acute or chronic hemorrhage. The ventricles are normal in size and configuration without hydrocephalus. The scalp and calvarium are normal. The pituitary and sella are normal. No Chiari malformation. The visualized upper cervical spine is normal. The visualized orbits and globes are normal. The visualized paranasal sinuses are clear. The mastoid air cells are clear. Normal flow voids within the vertebral, basilar, and internal carotid arteries indicating patency. IMPRESSION: No acute infarct, hemorrhage, mass, or hydrocephalus. Dictated by: Dictated on workstation # [id number]
[2023-03-18] MEDS ORDERED: VALA10007 PO (10:16)
[2023-03-18] MEDS ORDERED: PRD20T PO (10:16)
[2023-03-18] MEDS ORDERED: LISI5TAB20 PO (10:16)
[2023-03-18] MEDS ORDERED: ONDA4TAB11 SL (10:16)
[2023-03-18] MEDS ORDERED: HYDR-700 PO (10:22)
[2023-03-18] MEDS ORDERED: KETOROLAC INJ 15 MG/ML VIAL IVP ONE (10:30)
[2023-03-18] MEDS ORDERED: ACETAMINOPHEN 500 MG TABLET PO ONE (10:30)
[2023-03-18] MEDS ORDERED: ONDANSETRON INJECTION 4 MG/2 ML (SDV) IVP ONE (10:30)
[2023-03-18 10:47] VITALS: BP 137/99
== END 2023-03-18 10:47 | disposition home or self-care (01) ==
LOC: EDUNIT# 08:03 → ER 08:05
DX: G51.0 Bell's palsy (principal); F17.210 Nicotine dependence, cigarettes, uncomplicated
CPT/HCPCS: 36415; 70450; 70551; 71045; 80053; 82947; 84484; 84703; 85025; 85610; 85730; 93005; 93041